=== PATIENT | female | born 1955 | race Caucasian/White ===

== ENCOUNTER 2020-07-13 07:57 | Outpatient (REF) | payer OTHER, SELFPAY ==
--- NOTE | ~2020-07-13 | MM_ITS ---
EXAMINATION: MM SCREENING DIGITAL BREAST TOMOSYNTHESIS, BILATERAL CLINICAL INFORMATION: Screening. Asymptomatic. Patient notes benign breast surgery 1993. The lifetime risk of breast cancer based on the Tyrer-Cuzick Model is 11%. COMPARISON: Mammography: 07/08/2019, 07/06/2018, 05/22/2017 TECHNIQUE: Digital breast tomosynthesis is performed in both the craniocaudal and mediolateral oblique views along with computer-aided detection (CAD). Synthesized 2D images are generated from the tomosynthesis. FINDINGS: There are scattered areas of fibroglandular density (ACR BI-RADS breast composition Category b). There are no significant masses, abnormal calcifications, or other abnormalities. Parenchymal pattern is similar to prior studies. No significant changes. MM/MM tomosynthesis screening BI IMPRESSION: No mammographic evidence of malignancy. ASSESSMENT: BI-RADS 1: Negative RECOMMENDATION: Routine annual mammography screening. This patient's information was entered into a reminder system with a target due date for their next mammogram.
== END 2020-07-13 07:58 | disposition home or self-care (01) ==
LOC: HO.MAMMO 07:57
PROVIDERS: Visit Provider Nurse Practitioner Family
DX: Z12.31 Encounter for screening mammogram for malignant neoplasm of breast (principal)
CPT/HCPCS: 77063; 77067

== ENCOUNTER 2020-08-02 08:07 | Outpatient (REF) | payer OTHER, SELFPAY ==
--- NOTE | ~2020-08-02 | MM_ITS ---
EXAMINATION: BONE DENSITOMETRY CLINICAL INDICATION: Screening for osteoporosis. COMPARISON: Previous BD dated 03/19/2016 and baseline BD dated 02/29/2008. TECHNIQUE: Using a [employer] DXA System (software version: 13.1) manufactured by [employer], dual-energy x-ray absorptiometry was performed of the lumbar spine and left hip. The images are of good technical quality. Summary results are attached. FINDINGS: AP SPINE L1-L4: There is levocurvature lumbar spine and mild degenerative changes which may cause overestimation of the lumbar bone mineral density. Current: BMD 0.963 g/cm2, Z-score -0.5, T-score -1.8, osteopenia, 4.7% decrease from previous, 12.5% decrease from baseline (<5% change is not significant). Prior: BMD 1.010 g/cm2. Baseline: BMD 1.100 g/cm2. LEFT FEMUR, NECK: Current: BMD 0.689 g/cm2, Z-score -1.2, T-score -2.5, osteoporosis. Prior: BMD 0.807 g/cm2. Baseline: BMD 0.898 g/cm2. LEFT FEMUR, TOTAL: Current: BMD 0.681 g/cm2, Z-score -1.6, T-score -2.6, osteoporosis, 16.4% decrease from previous, 23.4% decrease from baseline (<5% change is not significant). Prior: BMD 0.815 g/cm2. Baseline: BMD 0.889 g/cm2. IDENTIFIED RISK FACTORS: Recurrent falls, height loss, left oophorectomy. HISTORY OF FRACTURE: None listed. MEDICATIONS: Calcium supplements or multivitamin, vitamin D. MM/XR DEXA axial skeleton IMPRESSION: 1. DIAGNOSIS: Osteoporosis based on the lowest T-score value of -2.6 in the total femur applying World Health Organization criteria. 2. 10-YEAR FRACTURE RISK PREDICTION, FRAX: Major osteoporotic fracture (clinical spine, forearm, hip or shoulder) 13.0%. Hip fracture 2.7%. 3. Treatment Recommendations: NOF guidelines recommend consideration for treatment in postmenopausal women and men age 50 and older presenting with the following: -A hip or vertebral (clinical or morphometric) fracture. -T-score less than or equal to -2.5 at the femoral neck or spine after appropriate evaluation to exclude secondary causes. -Low bone mass at the hip or spine and a 10-year fracture probability by FRAX of greater than or equal to 3% for hip fracture or greater than or equal to 20% for major osteoporotic fracture based on the [place] adapted WHO algorithm. 4. Other Recommendations: All treatment decisions require clinical judgment and consideration of individual patient factors, including patient preferences, comorbidities, previous drug use, risk factors not captured in the FRAX model (e.g. frailty, falls, vitamin D deficiency, increased bone turnover, interval significant decline in bone density) and possible under or overestimation of fracture risk by FRAX. Additional medical evaluation for secondary cause of low bone mineral density may be appropriate. FUTURE SCAN RECOMMENDATION: People with diagnosed cases of osteoporosis or at high risk for fracture should have regular bone mineral density tests. For patients eligible for Medicare, routine testing is allowed once every 2 years. The testing frequency can be increased to one year for patients who have rapidly progressing disease, those who are receiving or discontinuing medical therapy to restore bone mass, or have additional risk factors.
== END 2020-08-02 08:08 | disposition home or self-care (01) ==
LOC: HO.MAMMO 08:07
PROVIDERS: Visit Provider Nurse Practitioner Family
DX: M81.8 Other osteoporosis without current pathological fracture (principal); R29.6 Repeated falls; Z79.899 Other long term (current) drug therapy; Z90.721 Acquired absence of ovaries, unilateral
CPT/HCPCS: 77080

== ENCOUNTER 2021-07-30 11:30 | Outpatient (REF) | payer MEDICARE, SELFPAY ==
--- NOTE | ~2021-07-30 | MM_ITS ---
EXAMINATION: MM SCREENING DIGITAL BREAST TOMOSYNTHESIS, BILATERAL CLINICAL INFORMATION: Screening. Asymptomatic. The lifetime risk of breast cancer based on the Tyrer-Cuzick Model is 10%. COMPARISON: Mammography: 07/13/2020, 07/08/2019, 07/06/2018 TECHNIQUE: Digital breast tomosynthesis is performed in both the craniocaudal and mediolateral oblique views along with computer-aided detection (CAD). Synthesized 2D images are generated from the tomosynthesis. FINDINGS: There are scattered areas of fibroglandular density (ACR BI-RADS breast composition Category b). There are no significant masses, abnormal calcifications, or other abnormalities. Parenchymal pattern is similar to prior studies. There is no developing density or architectural abnormality. The axilla and skin contours are unremarkable. No significant changes. MM/MM tomosynthesis screening BI IMPRESSION: No mammographic evidence of malignancy. ASSESSMENT: BI-RADS 1: Negative RECOMMENDATION: Routine annual mammography screening. This patient's information was entered into a reminder system with a target due date for their next mammogram.
== END 2021-07-30 11:31 | disposition home or self-care (01) ==
LOC: HO.MAMMO 11:30
PROVIDERS: PCP Nurse Practitioner Family; Visit Provider Nurse Practitioner Family
DX: Z12.31 Encounter for screening mammogram for malignant neoplasm of breast (principal)
CPT/HCPCS: 77063; 77067

== ENCOUNTER → 2021-08-15 14:50 | Outpatient (BNVA) | payer MEDICARE, SELFPAY | PROVIDERS: PCP Nurse Practitioner Family; Visit Provider Surgery | DX: K64.8 Other hemorrhoids (principal) | CPT/HCPCS: 46600; 99202 ==

== ENCOUNTER 2022-08-05 11:35 | Outpatient (REF) | payer MEDICARE, SELFPAY ==
--- NOTE | ~2022-08-05 | MM_ITS ---
EXAMINATION: MM SCREENING DIGITAL BREAST TOMOSYNTHESIS, BILATERAL CLINICAL INFORMATION: Screening. Asymptomatic. The lifetime risk of breast cancer based on the Tyrer-Cuzick Model is 9%. COMPARISON: Mammography: 07/30/2021, 07/13/2020, 07/08/2019, 07/06/2018 TECHNIQUE: Digital breast tomosynthesis is performed in both the craniocaudal and mediolateral oblique views along with computer-aided detection (CAD). Synthesized 2D images are generated from the tomosynthesis. FINDINGS: There are scattered areas of fibroglandular density (ACR BI-RADS breast composition Category b). There are no significant masses, abnormal calcifications, or other abnormalities. No architectural abnormality or developing density or significant change from prior studies. The axilla are unremarkable. MM/MM tomosynthesis screening BI IMPRESSION: No mammographic evidence of malignancy. ASSESSMENT: BI-RADS 1: Negative RECOMMENDATION: Routine annual mammography screening. This patient's information was entered into a reminder system with a target due date for their next mammogram.
== END 2022-08-05 11:36 | disposition home or self-care (01) ==
LOC: HO.MAMMO 11:35
PROVIDERS: PCP Family Medicine; Visit Provider Nurse Practitioner Family
DX: Z12.31 Encounter for screening mammogram for malignant neoplasm of breast (principal)
CPT/HCPCS: 77063; 77067

== ENCOUNTER 2023-01-03 09:50 | Day surgery (SDC) | payer MEDICARE, SELFPAY ==
[2023-01-03 10:18] VITALS: BP 146/99; PULSE 85; RESP 16; TEMP 36.2; O2SAT 100; BMI 27.1
[2023-01-03] MEDS: Lactated Ringers 1,000 ML 100 ML IVCONT (10:37)
--- NOTE | 2023-01-03 11:18 | HO.ANESPROP2 ---
HPI - Anesthesia Eval Consult details Narrative: screening [facility] Active Problems Active Problems: All Active Problems (Updated 01/02/23 @ 14:23 by Gricelda Berger, RN) Hemorrhoids with complication (Acute) Urinary tract infection (Acute) Knee pain, bilateral (Acute) Low back pain (Acute) Generalized anxiety disorder (Acute) Past Medical History Medical History (Updated 01/02/23 @ 14:23 by Gricelda Berger, CECELIA) Celiac sprue Depression Diverticulosis Generalized anxiety disorder GERD (gastroesophageal reflux disease) H/O infectious mononucleosis Hemorrhoids with complication Internal hemorrhoid Knee pain, bilateral Low back pain Myalgia Osteopenia Urinary tract infection Family History Family History Maternal Aunt Breast cancer Family history of problems with anesthesia: No Surgical History Surgical History (Updated 01/03/23 @ 10:14 by Ashlyn Guadarrama) H/O colonoscopy H/O esophagogastroduodenoscopy History of appendectomy History of left oophorectomy History of shoulder surgery History of tonsillectomy and adenoidectomy Hx of lumpectomy History of Problems with Anesthesia: No Social History Social History Patient Tobacco Use Status: Never used Tobacco Use of substances other than those prescribed or required for medical reasons: No Are you DNR?: No Advance Directives: No Advance Directives Information Provided: Yes Meds Allergies Allergy/AdvReac Type Severity Reaction Status Date / Time egg Allergy Intermediate Gastrointestinal Verified 01/03/23 10:05 Upset erythromycin base Allergy Intermediate Gastrointestinal Verified 01/03/23 10:05 Upset lactose Allergy Intermediate Gastrointestinal Verified 01/03/23 10:05 Upset Seasonal Allergies Allergy Intermediate Sneezing Verified 01/03/23 10:05 wheat Allergy Intermediate Gastrointestinal Verified 01/03/23 10:05 Upset Yeast Allergy Intermediate Gastrointestinal Verified 01/03/23 10:05 Upset Active Medications: Current Medications Lactated Ringer's (Lr) 1,000 mls @ 100 mls/hr IVCONT .Q10H GUERLINE Last Admin: 01/03/23 10:37 Dose: 100 mls/hr Home Medications Medication Instructions Recorded Confirmed Last Taken Type carisoprodol 250 mg tablet 250 mg PO BEDTIME 07/22/20 01/03/23 Unknown History cetirizine 10 mg tablet (Zyrtec) 10 mg PO DAILY PRN Allergy Symptoms 07/22/20 01/03/23 Unknown History esomeprazole magnesium 20 mg 20 mg PO DAILY 07/22/20 01/03/23 Unknown History capsule,delayed release (Nexium 24HR) iucmitt-ynitxhjlmuurw-xnotmvhu 250 1 tab PO Q4-6H PRN Headache 08/15/21 01/03/23 12/27/22 History mg-250 mg-65 mg tablet (Excedrin Migraine) duloxetine 30 mg capsule,delayed 30 mg PO DAILY 08/15/21 01/03/23 Unknown History release multivitamin 1 tab PO DAILY 08/15/21 01/03/23 Unknown History Culturelle 1 cap PO DAILY 01/03/23 01/03/23 Unknown History calcium 1 cap PO DAILY 01/03/23 01/03/23 Unknown History Exam Exam Date and Time: January 03, 2023 1118 Height,Weight and Vital Signs: Height 5 ft 3 in Weight 69.4 kg Last Vital Signs Temp 97.2 F 01/03/23 10:18 Pulse 85 01/03/23 10:18 Resp 16 01/03/23 10:18 BP 146/99 H 01/03/23 10:18 Pulse Ox 100 01/03/23 10:18 O2 Del Method Room Air 01/03/23 10:18 Airway Mallampati Class: II TM Dist: >3cm Neck ROM: Full Loose/Missing/Broken Teeth: No Heart: rr Lungs: cta Assessment and Plan Assessment Anesthesia Assessment: Anesthesia Plan Discussed Final Anesthetic Review Family History of Problems with Anesthesia: No History of Problems with Anesthesia: No NPO: Yes ASA Class: II Final Preanesthetic Review: No Changes in Pt Med Stat, Meds/Allgs Chart Reviewed, Consent Obtained/Reviewed and Anes Risks/Benef Reviewed Patient Risk: Low Procedure Risk: Low Anesthetic Plan Anesthetic Plan: MAC: Disposition: Standard PACU
--- NOTE | 2023-01-03 12:15 | MHC.SHP ---
Pre-Procedural Eval Section A Date of Service: 01/03/23 Section B Chief Complaint: Epigastric pain,Celiac disease,Change in bowel hab Details of Present Illness: see H*P Relevant Family History (Specify if Yes): No Relevant Social History: None Present Medications: see Short Stay Collaborative assessment Medical History: No relevant PMH History of Previous Operations: No relevant previous surgery Allergies: Allergies Allergy/AdvReac Type Severity Reaction Status Date / Time egg Allergy Intermediate Gastrointestinal Verified 01/03/23 10:05 Upset erythromycin base Allergy Intermediate Gastrointestinal Verified 01/03/23 10:05 Upset lactose Allergy Intermediate Gastrointestinal Verified 01/03/23 10:05 Upset Seasonal Allergies Allergy Intermediate Sneezing Verified 01/03/23 10:05 wheat Allergy Intermediate Gastrointestinal Verified 01/03/23 10:05 Upset Yeast Allergy Intermediate Gastrointestinal Verified 01/03/23 10:05 Upset Review of Systems Sugical H&P ROS: Negative: Constitution, Cardiovascular, Respiratory, Neurological, Psychiatric, Hem-Onc, Allergic/Immunologic, Gastrointestinal, Genitourinary, Musculoskeletal, Integumentary, Endocrine and Eyes/Ears/Nose/Throat Exam Surgical H&P Exam: Normal: HEENT, Normal: Heart, Normal: Lungs, Normal: Extremities, Normal: Abdomen, Normal: Skin and Normal: Neurological Plan Diagnosis/Plan: Unchanged I have reviewed the history and physical and performed a pertinent physical examination on my patient. No changes have occurred unless specified. Time Spent With Patient Time: Total time managing care of this patient today ____ minutes.
[2023-01-03 13:16] VITALS: BP 85/57; PULSE 73; RESP 16; TEMP 36.7; O2SAT 100
--- NOTE | 2023-01-03 13:20 | P.BOP_ITS ---
Brief Operative Note Date of Service: 01/03/23 Pre-op diagnosis: epigastric pian celiac disease\ change in bowels Post-op diagnosis: same Surgeon: Larry Alvarado Anesthesia: MAC Was an Dieing Out Machine Operator used for this Procedure?: No Estimated blood loss (mL): 2 Pathology: other Condition: stable Disposition: PACU
[2023-01-03 13:31] VITALS: BP 120/72; PULSE 66; RESP 20; TEMP 36.5; O2SAT 100
--- NOTE | 2023-01-03 13:40 | OP_ITS ---
DATE OF SERVICE: 01/03/2023 SURGEON: Larry Alvarado MD INDICATIONS: Abdominal pain, celiac disease, and change in bowels. PREOPERATIVE DIAGNOSIS: POSTOPERATIVE DIAGNOSIS: PROCEDURE PERFORMED: Upper endoscopy with biopsy, colonoscopy to the terminal ileum with biopsy. ESTIMATED BLOOD LOSS: COMPLICATIONS: ANESTHESIA: Monitored anesthesia care. ASSISTANTS: SPECIMENS: DESCRIPTION OF PROCEDURE: A history and physical was performed. The risks and benefits of the procedure were explained to the patient. Informed consent was obtained. The patient was placed in the left lateral decubitus position. The Olympus video gastroscope was introduced into the esophagus, stomach, and duodenum. Examination was performed. The scope was removed. She tolerated the procedure well and was repositioned for colonoscopy. A digital rectal exam was performed and was found to be normal. The Olympus pediatric video colonoscope was introduced into the rectum and advanced to the cecum. The cecum was identified by transillumination, palpation, and identification of ileocecal valve. Examination was performed. The scope was removed. She tolerated both procedures well and was returned to the recovery area in stable condition. FINDINGS: Upper endoscopy: 1. Esophagus: The esophagus was normal. There was an irregular EG junction with some minimal erythema and slight irritation just above the EG junction. Biopsies were obtained from this area. 2. Stomach: The stomach showed no evidence of masses, ulcers, or polyps. Antral biopsies were obtained. 3. Duodenum: The bulb and 2nd portion showed some minimal flattening of the mucosa. Biopsies were obtained from the 2nd portion. Colonoscopy: The terminal ileum was normal. The visualized colonic mucosa was within normal limits. There was no evidence of masses, ulcers, or polyps. The quality of the prep was good. There was mild sigmoid diverticulosis. Random sigmoid biopsies were obtained. Retroflexed examination showed very small internal hemorrhoids. IMPRESSION: 1. Minimal esophagitis. 2. Celiac disease. 3. Hiatal hernia. 4. Normal colonoscopy. RECOMMENDATION: Follow up the biopsy results. 10 year colon recall is recommended for average risk individuals. MD SANDHYA Lim/COBY / [phone] MTDD
== END 2023-01-03 14:00 | disposition home or self-care (01) ==
PROVIDERS: PCP Family Medicine; Visit Provider Internal Medicine Gastroenterology
PROC: (CPT 45380; principal; 2023-01-03 11:00)
DX: R19.4 Change in bowel habit (principal); K57.30 Diverticulosis of large intestine without perforation or abscess without bleeding; K64.8 Other hemorrhoids; K90.0 Celiac disease; R10.13 Epigastric pain; K21.9 Gastro-esophageal reflux disease without esophagitis; K31.89 Other diseases of stomach and duodenum; K20.80 Other esophagitis without bleeding; K44.9 Diaphragmatic hernia without obstruction or gangrene; M85.80 Other specified disorders of bone density and structure, unspecified site; M79.10 Myalgia, unspecified site; F32.A Depression, unspecified; Z79.899 Other long term (current) drug therapy
CPT/HCPCS: 45380; 43239; 88305; 88342; J2250

== ENCOUNTER 2023-07-04 11:06 | Outpatient (AMB) | payer MEDICARE, SELFPAY ==
--- NOTE | 2023-07-04 11:10 | AM.OFFWIN_ITS ---
Intake Vital Signs 07/04/23 11:11 Height 5 ft 3 in Weight 160 lb BMI 28.3 BP 114/60 Blood Pressure Location Rt brachial Position Sitting Pulse 78 Pulse Source Pulse Oximeter Temp 98.7 F Temp Source Oral Pulse Oximetry (%) 97 Oxygen Delivery Method Room Air Intake Visit Reasons: EST/blood in right ear(lobby masked) Intake Note: Pt is here c/o discomfort in her right ear. Pt states she swabbed blood out of her right ear. Patient Tobacco Use Status: Never used Tobacco Allergies egg Allergy (Intermediate, Verified 07/04/23 11:11) Gastrointestinal Upset erythromycin base Allergy (Intermediate, Verified 07/04/23 11:11) Gastrointestinal Upset lactose Allergy (Intermediate, Verified 07/04/23 11:11) Gastrointestinal Upset Seasonal Allergies Allergy (Intermediate, Verified 07/04/23 11:11) Sneezing wheat Allergy (Intermediate, Verified 07/04/23 11:11) Gastrointestinal Upset Yeast Allergy (Intermediate, Verified 07/04/23 11:11) Gastrointestinal Upset Do you need a note to return to daycare/school/sports/work: No HPI HPI Comments History of Present Illness Details This is a 67-year-old female who presented to the walk-in clinic today complaining of right ear discomfort and bleeding. Patient states she had COVID- 19 05/2023 and she has been suffering from persistent sinus/nasal congestion, headaches, and fatigue since then. Patient states that her right ear started bothering her several days ago and she had some blocked/muffled hearing. She noticed some blood on her hearing aid when she removed her hearing aid yesterday. She denies any recent head trauma. She denies any vomiting. Of note, the patient plays the [employer]. [facility] Medical History (Updated 01/02/23 @ 14:23 by Gricelda Berger RN) Myalgia Osteopenia H/O infectious mononucleosis Depression GERD (gastroesophageal reflux disease) Internal hemorrhoid Diverticulosis Celiac sprue Hemorrhoids with complication Urinary tract infection Knee pain, bilateral Low back pain Generalized anxiety disorder Surgical History (Updated 01/03/23 @ 10:14 by Ashlyn Guadarrama) H/O colonoscopy History of left oophorectomy Hx of lumpectomy H/O esophagogastroduodenoscopy History of shoulder surgery History of appendectomy History of tonsillectomy and adenoidectomy Family History Maternal Aunt Breast cancer Social History Patient Tobacco Use Status: Never used Tobacco Review of Systems Const All systems reviewed & are unremarkable except as noted in HPI and below Reports no additional complaints Eyes Reports no additional complaints ENT Reports no additional complaints Card Reports no additional complaints Resp Reports no additional complaints GI Reports no additional complaints Reports no additional complaints Musc Reports no additional complaints Skin/Breast Reports system reviewed and no additional complaints, except as documented Neuro Reports no additional complaints Psych Reports no additional complaints Endo Reports no additional complaints Logan/Lymph Reports no additional complaints Aller/Immun Reports no additional complaints Physical Exam Vital Signs: Last Vital Signs Temp 98.7 F 07/04/23 11:11 Pulse 78 07/04/23 11:11 BP 114/60 07/04/23 11:11 Pulse Ox 97 07/04/23 11:11 Oxygen Delivery Method Room Air 07/04/23 11:11 BMI result Body Mass Index 28.3 Const Other: Vital signs reviewed. Constitutional: Non-toxic appearing. No acute distress. Well-developed and well-nourished. HEENT: Normocephalic and atraumatic. No rodriguez sign. No raccoon eyes. There is blood in her right external auditory canal occluding her tympanic membrane so I am unable to visualize her tympanic membrane. Skin: Warm and dry. No rashes or lesions noted. Neck: Full and painless range of motion. No cervical lymphadenopathy. Cardio: Regular rate. No lower extremity edema. No JVD. Pulmonary: No respiratory distress. No accessory muscle usage. Gastrointestinal: Soft, nontender, and nondistended in all 4 quadrants. Musculoskeletal: Normal range of motion in joints throughout the body. No deformity or other signs of injury. Neuro: Alert and oriented x4. Cranial nerves 2-12 grossly intact. No focal deficits appreciated. Psych: Normal mood and affect. Assessment & Plan Assessment & Plan (1) Blood in right ear canal: Code(s): H92.21 - Otorrhagia, right ear Plan: This is a 67-year-old female who presented to the walk-in clinic complaining of blood in her right ear. 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 On physical examination, there is blood in her right ear canal occluding her tympanic membranes were I am unable to visualize her tympanic membrane. Differential diagnoses includes perforation of her tympanic membrane versus acute otitis media. Patient was sent home with p.o. amoxicillin/clavulanate 875/125 mg twice daily to treat presumed acute otitis media and perforated tympanic membrane. The patient was instructed to call her ENT doctor to schedule a follow-up appointment. She was instructed to refrain from playing the trumpet for the next 1 week until her symptoms improve. She was instructed to follow-up here or proceed directly to the emergency room if she were to develop any persistent/worsening symptoms. Patient verbalized understanding and is agreeable with the plan. Medications: New amoxicillin-pot clavulanate 875-125 mg 1 tab PO BID 14 tabs 0RF Coding Level of Care Code Est Pt Level 3 (63272) Diagnoses Blood in right ear canal H92.21
[2023-07-04 11:11] VITALS: BP 114/60; PULSE 78; TEMP 37.1; O2SAT 97; BMI 28.3
== END 2023-07-04 11:52 | disposition home or self-care (01) ==
PROVIDERS: PCP Family Medicine; Visit Provider Physician Assistant Medical
DX: H92.21 Otorrhagia, right ear (principal)
CPT/HCPCS: 99213

== ENCOUNTER 2023-08-15 08:37 | Outpatient (REF) | payer MEDICARE, SELFPAY | END 2023-08-15 08:38 | disposition home or self-care (01) | LOC: HO.MAMMO 08:37 | PROVIDERS: PCP Family Medicine; Visit Provider Family Medicine | DX: Z12.31 Encounter for screening mammogram for malignant neoplasm of breast (principal) | CPT/HCPCS: 77063; 77067 ==

== ENCOUNTER → 2023-08-15 08:45 | Outpatient (BNV) | payer MEDICARE, SELFPAY | PROVIDERS: PCP Family Medicine; Visit Provider Radiology Diagnostic Radiology | DX: Z12.31 Encounter for screening mammogram for malignant neoplasm of breast (principal) | CPT/HCPCS: 77063; 77067 ==

== ENCOUNTER 2024-08-20 09:50 | Outpatient (REF) | payer MEDICARE, SELFPAY ==
--- OUTSIDE RECORDS SUMMARY | 2024-08-20 11:28 | XMS_ITS | Patient Health Record ---
Author Organization [facility] Address [address] [place] [address] Care Team Providers Care Postdoctoral Scholar Name Role Phone Batool Canseco N.P. Primary Care Provider Larry Michelle Jr Unavailable Allergies Allergen (clinical drug ingredient) Drug/Non Drug Allergy documented on EMR Reaction Allergy Type Onset Date Status dairy (uncoded) Unknown Allergy Acti ve eggs (uncoded) Unknown Allergy Activ e Wheat wheat (uncoded) Unknown Allergy Acti ve erythromycin ERYTHROMYCIN (uncoded) Unknown Allergy Active seasonal allergies (uncoded) Unknown Allergy Active yeast (uncoded) Unknown Allergy Acti ve Reason For Referral No Information Medications Medication SIG (Take, Route, Frequency, Duration) Notes Start Date End Date Status Magnesium Active Digestive Enzyme Act rodney MiraLax (colon prep) 17 GM/SCOOP mixed with Gatorade or Crystal Light Orally begin at 5:00 p.m. the day before the procedure for 1 day 11/21/2022 Active ZyrTEC Allergy Activ e Probiotic Active Carisoprodol 250 MG 1 tablet as needed O rally Four times a day Active Fish Oil Active DULoxetine HCl 30 MG 1 capsule Orally On ce a day for 30 day(s) 11/21/2022 Active Advil 200 MG 1 tablet as needed O rally every 6 hrs Active Omeprazole 20 MG 1 capsule Orally Onc e a day for 30 days Active Immunizations Vaccine Route Administration Date Status Comme nts Influenza Unknown 03/19/2022 Administered Problems Problem Type SNOMED Code ICD Code Onset Dates Problem Status W/U Status Risk Notes Problem 749012548 Colon cancer screening (Z12.11) Active confirmed Problem 31140497 Epigastric pain (R10.13) Active confirmed Problem 33515273 Change in bowel habit (R19.4) Active confirmed Problem 976224827 Celiac disease (K90.0) Active confirmed Problem 403883971 Gastroesophageal reflux disease without esophagitis (K21.9) Active confirmed Problem 40240886 Lower abdominal pain (R10.30) Active confirmed Vital Signs Blood pressure diastolic 00 mm Hg 02/26/2024 Height 65 in 02/26/2024 Blood pressure systolic 00 mm Hg 02/26/2024 Weight 161 lbs 02/26/2024 BMI 26.79 kg/m2 02/26/2024 Encounters Encounter Location Date Provider Diagnosis [facility] [address] [place] [address] 02/26/2024 Larry Alvarado Jr Gastroesophageal reflux disease without esophagitis K21.9 ; Celiac disease K90.0 and Colon cancer screening Z12.11 Assessments Encounter Date Diagnosis (ICD Code) Assessment Notes Treatment Notes Treatment Clinical Notes Section Notes 02/26/2024 Celiac disease (ICD-10 - K90.0) At this time, harpal givens is doing well. We discussed gastroesophageal reflux disease today. We discussed diet, lifestyle modifications, and weight management. We recommended she continue omeprazole. She will continue to follow a gluten-free diet. She is up-to-date on colon cancer screening. Followup in one year. 02/26/2024 Gastroesophageal reflux disease without esophagitis (ICD-10 - K21.9) Gastroesophageal reflux disease material was printed At this time, she is doing well. We discussed gastroesophageal reflux disease today. We discussed diet, lifestyle modifications, and weight management. We recommended she continue omeprazole. She will continue to follow a gluten-free diet. She is up-to-date on colon cancer screening. Followup in one year. 02/26/2024 Colon cancer screening (ICD-10 - Z12.11) At this time, kaden santoro is doing well. We discussed gastroesophageal reflux disease today. We discussed diet, lifestyle modifications, and weight management. We recommended she continue omeprazole. She will continue to follow a gluten-free diet. She is up-to-date on colon cancer screening. Followup in one year. Plan Of Treatment Future Test Test Name Order Date COLONOSCOPY 02/03/2013 COLONOSCOPY 09/08/2014 UPPER GI ENDOSCOPY 11/21/2022 COLONOSCOPY 11/21/2022 Next Appt Details Provider Name:Larry Urias Virgilio patrick Jr, 02/24/2025 01:55:00 PM, [address], [address], [place], [address], Insurance Providers Payer Name Payer Address Payer Phone Subscriber Number Group Number Insured Name Patient Relationship to Insured Coverage Start Date Coverage End Date MEDICARE OF [place] [address] [place] [address] [id number] COLIN PERRY Self - patient is the insured MEDEX ATT[employer] CLAIMS [address] [place] [phone] [id number] COLIN PERRY Self - patient is the insured Medical (General) History Medical History History ICD Code Celiac sprue, diagnosed by e ndoscopy and serology 2007, EGD 01/22, no active celiac disease Colonoscopy 01/22, diverticul osis/small internal hemorrhoids. Five-year followup Gastroesophageal reflux disease, mild re flux changes on endoscopy 01/22 Depression Mononucleosis Osteopenia Myalgia spinal fusion december Surgical History Surgery Date(Month/Year) left ovary, tube, appendix remoal tonsillectomy Lumpectomy, benign disease left shoulder surgery 2019 torn rotator cuff spinal fusion 01/2024 Hospitalization History Reason Date(Month/Year)
--- OUTSIDE RECORDS SUMMARY | 2024-08-20 11:28 | XMS_ITS | Data Portability ---
Author Organization [place] [facility], [facility] Address [address] [address] Care Team Providers Care Stem Roller Name Role Phone IVET CHELI Primary Care Provider Assessment Encounter Date Assessment Date Assessment LastModified by Organization Details LastModified Time 03/03/2024 03/03/2024 Patient presents for evaluation of ears. Cerumen successfully removed bilaterally, which patient tolerated well. Otologic exam otherwise unremarkable. Patient reported hearing returned to baseline thereafter and declined audiometric testing. Return in 3-6 months for cerumen removal. Avoid Q-tips. Avoid or protect against loud noise. Recommend annual audiometric testing, sooner with perceived change. Patient understands to call sooner with any issues that arise. [email or web address] Not available 03/03/2024 12:03:44 Plan of Treatment Reminders Order Date Submit Date Provider Last Modified By Organization Details Last Modified Time Details Appointments Establish ed 15 2024 10:30A M DAI ARANA PA-C Not available Not available Not available Lab None recorded. Referral None recorded. Procedures None recorded. Surgeries None recorded. Imaging None recorded. Medication Orders None recorded. Patient TargetsNo targets recorded. Patient InstructionsNo instructions recorded. Reason for Referral None Reported. Problems Name Problem SNOMED Code Status Onset Date Resolution Date Notes Provider Name and Address Organization Details Recorded Time Bilateral tinnitus 01556044974 02 Active 2021 Tinnitus, bilateral ; Note: Date Diagnosed : 06/20/2021 9:32 AM (H93.13) Not Available [facility] 03:13:29 Sensorine ural hearing loss of bilateral ears 596932558 Active 2021 Sensorine ural hearing loss, bilateral ; Note: Date Diagnosed : 06/20/2021 9:32 AM (H90.3) Not Available [facility] 03:13:29 Impacted cerumen of bilateral ears 71862093599 46710 Active 2015 Impacted cerumen, bilateral ; Note: Date Diagnosed : 6 3:21 PM (H61.23) Not Available [facility] 03:13:30 Impacted cerumen in left ear 82561553385 21434 Active 2023 Impacted cerumen, left ear; Note: Date Diagnosed : 07/07/2023 11:47 AM (H61.22) Not Available [facility] 03:13:28 Conductiv e hearing loss 40463770 Active 2023 Conductiv e hearing loss, unspecifi ed; Note: Date Diagnosed : 07/07/2023 11:47 AM (H90.2) Not Available [facility] 03:13:29 Otorrhagi a of right ear 60156145119 86390 Active 2023 Otorrhagi a, right ear; Note: Date Diagnosed : 07/07/2023 11:46 AM (H92.21) Not Available [facility] 03:13:29 Problem Notes None recorded. Procedures Surgical History Date Name Laterality Status Provider Name and Address Organization Details Recorded Time Cerumen removal without microscope bilat completed DAI ARANA PA-C [address] [place] [address], [phone], [facility] 03/03/2024 12:03:29 lumbar spinal fusion completed DAI ARANA PA-C [address] [place] [address], [phone], [facility] - [facility] 03/03/2024 11:55:15 Imaging Results None recorded. Procedure Notes None recorded. Medical Equipment None Reported. Medications Name Sig Start Date Stop Date Status Note LastModified by Organization Details LastModified Time carisoprodo l 350 mg tablet 2015 active Medication ID: [id number] Dur ation Value: 14 Brand Name: carisoprod ol Send Method: E-Prescrib ed Subs Allowed: subs OK Medicat ionGeneric Name: carisoprod ol Not Available Not Available Not Available tizanidine 2 mg tablet TAKE 1 TABLET BY MOUTH EVERY 8 HOURS. active Not Available Not Available No t Available azithromyci n 250 mg tablet active Not Available Not Available Not Available Nexium 20 mg capsule,del ayed release 2015 active Medication ID: [id number] Bra nd Name: Nexium Sen d Method: E-Prescrib ed Subs Allowed: subs OK Medicat ionGeneric Name: Nexium Not Available Not Available Not Available ofloxacin 0.3 % ear drops Apply 10 drop into right ear once a day active Not Available Not Available No t Available citalopram 20 mg tablet 2015 active Medication ID: [id number] Dur ation Value: 30 Brand Name: citalopram Send Method: E-Prescrib ed Subs Allowed: subs OK Medicat ionGeneric Name: citalopram Not Available Not Available Not Available gabapentin 300 mg capsule active Not Available Not Available Not Available gabapentin 100 mg capsule active Not Available Not Available Not Available celecoxib 100 mg capsule 2015 active Medication ID: [id number] Dur ation Value: 30 Brand Name: celecoxib Send Method: E-Prescrib ed Subs Allowed: subs OK Medicat ionGeneric Name: celecoxib Not Available Not Available Not Available amoxicillin 875 mg-potassiu m clavulanate 125 mg tablet active Not Available Not Available Not Available duloxetine 30 mg capsule,del ayed release active Not Available Not Available Not Available oxycodone 10 mg tablet TAKE 1 TABLET BY MOUTH EVERY 6 HOURS NEEDED FOR PAIN active Not Available Not Available No t Available Vitals Date Recorded Body height Body mass index (BMI) Body weight Provider Name and Address Organization Details Last Updated DateTime 03/03/2024 160.02 cm 27.5 kg/m2 41460.82 g So Del Toro [place] [facility] 03/03/2024 11:45:22 Social History None recorded. Functional Status None recorded. Mental Status None recorded. Family History Nothing Reported. Medical History No medical history recorded. Gynecological HistoryNo gynecological history recorded. Obstetrics History GPAL:G 0 P 0 0 0 0 Past Encounters Encounter ID Performer Location Encounter Start Date Encounter Closed Date Diagnosis/Indication Diagnosis SNOMED-CT Code Diagnosis ICD10 Code Diagnosis Note [id number] CINTIA BURR MD [facility] [address] [place] [address] 03/03/2024 11:32:26 03/03/2024 11:57:41 Impacted cerumen of bilateral ears 4629303896 025467 H61.23 Health Concerns Section Related Observation LastModified by Organization Detai ls LastModified Time None Recorded Concern Status LastModified by Organization Details LastModified Time None Recorded Advance Directives Directive None Recorded Payers Encounter Date Sequence Insurance Name Policy Number Policy Courtney Covered Member ID Courtney Member ID Guarantor Name 03/03/2024 2 [place] [id number] Juany Parker Bolivar [id number] Juany Keith Bolivar 03/03/2024 1 [place] [employer] Juany Keith Bolivar [id number] Juany Lutz Notes Date Note Type Note Provider Name and Address Organization Details Recorded Time 03/03/2024 text/html 68 year old female presents for evaluation of the ears. Reports she had lumbar spinal fusion 01/01 and is healing well and feeling much better. Ears have not been bothersome. Denies otalgia, otorrhea, pruritus, and change in hearing. CINTIA AGUAYO MD [address] [place] [address], [place], [address], [facility] - [facility] 03/03/2024 12:53:37 OBGyn Episode No OBEpisode recorded.
--- OUTSIDE RECORDS SUMMARY | 2024-08-20 11:28 | XMS_ITS ---
Author Organization [facility] Address [address] [place] [address] Care Team Providers Care Medical Observer Name Role Phone Batool Canseco N.P. Primary [...] Active yeast (uncoded) Unknown Allergy Acti ve REASON FOR VISIT Patient presents today for Celiac disease Medications Medication SIG (Take, Route, Frequency, Duration) Notes Start Date End Date Status ZyrTEC Allergy Activ e Probiotic Active Carisoprodol 250 MG 1 tablet as needed O rally Four times a day Active Advil 200 MG 1 tablet as needed O rally every 6 hrs Active Omeprazole 20 MG 1 capsule Orally Onc e a day for 30 days Active Magnesium Active Digestive Enzyme Act rodney MiraLax (colon prep) 17 GM/SCOOP mixed with Gatorade or Crystal Light Orally begin at 5:00 p.m. the day before the procedure for 1 day 11/21/2022 Active Fish Oil Active DULoxetine HCl 30 MG 1 capsule Orally On ce a day for 30 day(s) 11/21/2022 Active Problems Problem Type SNOMED Code ICD Code Onset Dates Problem Status W/U Status Risk Notes Problem 165431363 Gastroesophageal reflux disease without esophagitis (K21.9) Active confirmed Problem 995525194 Colon cancer screening (Z12.11) Active confirmed Vital Signs Blood pressure systolic 00 mm Hg 02/26/20 24 Blood pressure diastolic 00 mm Hg 024 Height 65 in 02/26/2024 Weight 161 lbs 02/26/2024 BMI 26.79 kg/m2 02/26/2024 Encounters Encounter Location Date Provider Diagnosis [facility] [address] [place] [address] 02/26/2024 Larry Alvaraod Jr Gastroesophageal reflux disease without esophagitis K21.9 ; Celiac disease K90.0 and Colon cancer screening Z12.11 Assessments Encounter Date Diagnosis (ICD Code) Assessment Notes Treatment Notes Treatment Clinical Notes Section Notes 02/26/2024 Gastroesophageal reflux disease without esophagitis (ICD-10 - K21.9) Gastroesophageal reflux disease material was printed At this time, she is doing well. We discussed gastroesophageal reflux disease today. We discussed diet, lifestyle modifications, and weight management. We recommended she continue omeprazole. She will continue to follow a gluten-free diet. She is up-to-date on colon cancer screening. Followup in one year. 02/26/2024 Celiac disease (ICD-10 - K90.0) At this time, s he is doing well. We discussed gastroesophageal reflux [...] Followup in one year. Plan Of Treatment Treatment Notes Assessment Notes Gastroesophageal reflux dise ase without esophagitis Gastroesophageal reflux disease material was printed Next Appt Details Follow Up: 1 Year, Reason: Provider Name:Larry patrick Jr, 02/24/2025 01:55:00 PM, [address], [address], [place], [address], Progress Notes * JUANY PERRY ADOB: (68 yo F)Acc No.[id number]:02/26/2024 Progress Notes Patient:JUANY MONK Provider:?Larry Alvarado MD :1955???Age:68 Y???Sex:Female D ate:02/26/2024 Address:[address] [place], [place] [address] Pcp:Batool Canseco N.P. Subjective: * Chief Complaints: * ???1. Patient presents today for Celiac disease. * HPI: ???New symptom(s):? Juany is a pleasant 68-year-old woman seen today in followup of multiple GI issues. She has celiac disease and has been maintained on a gluten-free diet. Endoscopy in December showed no evidence of celiac disease on biopsy consistent with a response to diet. There was no H. pylori and mild reflux changes but no Mariscal's esophagus. We reviewed this today. She continues on omeprazole with good control of reflux symptoms. ?Colonoscopy in December showed diverticulosis and small internal hemorrhoids but no polyps. She does have a family history of colon polyps in her father so consideration could be given to repeat colonoscopy in 5 years. We reviewed this today. * Medical History:?Celiac spru e, diagnosed by endoscopy and serology 2007, EGD 01/22, no active celiac disease, Colonoscopy 01/22, diverticulosis/small internal hemorrhoids. Five-year followup, Gastroesophageal reflux disease, mild reflux changes on endoscopy 01/22, Depression, Mononucleosis, Osteopenia, Myalgia, Spinal fusion december. * Surgical History:?left ovary , tube, appendix remoal , tonsillectomy , Lumpectomy, benign disease left , shoulder surgery 2019 torn rotator cuff , spinal fusion 01/2024. * Family History:?Father: dece ased, colon polyp, diagnosed with Heart disease, Colon polyps.?Mother: alive 101 yrs.?Paternal Grand Mother: , colon cancer, diagnosed with Colon cancer.? * Social History:?Tobacco Use:?Tobacco Use/Smoking?Are you a: nonsmoker.?Drugs/Alcohol:?Alcohol Screen?Points: 1, Interpretation: Negative.?Miscellaneous:?Marital status: . 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 * Medications:?Taking Digestiv e Enzyme , Taking Magnesium , Taking Fish Oil , Taking Carisoprodol 250 MG Tablet 1 tablet as needed Orally Four times a day, Taking Probiotic , Taking ZyrTEC Allergy , Taking Omeprazole 20 MG Tablet Delayed Release 1 capsule Orally Once a day, Taking Advil 200 MG Tablet 1 tablet as needed Orally every 6 hrs, Taking DULoxetine HCl 30 MG Capsule Delayed Release Particles 1 capsule Orally Once a day, Taking MiraLax (colon prep) 17 GM/SCOOP Powder mixed with Gatorade or Crystal Light Orally begin at 5:00 p.m. the day before the procedure, Medication List reviewed and reconciled with the patient * Allergies:?ERYTHROMYCIN, whe at, eggs, dairy, yeast, seasonal allergies. Objective: * Vitals:?Wt: 161 lbs, Ht: 65 in, BMI:26.79 Index, BP: 00/00 mm Hg. * Examination: ???General Examination: ???On examination today she appears well. Skin is anicteric. Lungs are clear. Heart shows regular rate and rhythm. Abdomen is soft without focal masses or tenderness. Extremities are without edema. Assessment: * Assessment: 1.?Gastroesophageal reflux d isease without esophagitis - K21.9 (Primary)?2.?Celiac disease - K90.0?3.?Colon cancer screening - Z12.11? At this time, she is doing w ell. We discussed gastroesophageal reflux disease today. We discussed diet, lifestyle modifications, and weight management. We recommended she continue omeprazole. She will continue to follow a gluten-free diet. She is up-to-date on colon cancer screening. Followup in one year. Plan: * Treatment: * Procedure Codes:?3017F COLOR ECTAL CA SCREEN DOC REV, G9903 Pt scrn tbco id as non user, G9745 DOC RSN FOR NOT SCREEN/REC F/U HBP * Preventive Medicine:? ??Counseling:?Care goal follow-up plan:?Above Normal BMI Follow-up?Giving encouragement to exercise,?BMI management provided?Yes.? ??Urinary Incontinence:?Urinary Incontinence?Assessment:?Present mild,?Plan of care documented:?Yes,?Type of plan of care:?Lifestyle interventions.? ??Screenings:?Fall Risk Screening?Fall Risk Assessment:?No falls in the past year,?Assessment:?Not performed, no reason specified.? * Follow Up:?1 Year * * Sign off status: Completed true * Provider:?Larry Alvarado MD Date:?0 02/26/2024 Generated for Amber beasley/Priscila/eTransmitting on:?08/20/2024 11:27 AM EDT History and Physical Notes * HPI (History of Present Illness) Category Sub-Category Detail Notes Category Not es New symptom(s) Juany is a pleasant 68-year-old woman seen today in followup of multiple GI issues. She has celiac disease and has been maintained on a gluten-free diet. Endoscopy in December showed no evidence of celiac disease on biopsy consistent with a response to diet. There was no H. pylori and mild reflux changes but no Mariscal's esophagus. We reviewed this today. She continues on omeprazole with good control of reflux symptoms. Colonoscopy in December showed diverticulosis and small internal hemorrhoids but no polyps. She does have a family history of colon polyps in her father so consideration could be given to repeat colonoscopy in 5 years. We reviewed this today. Examination Category Sub-Category Detail Notes Category Not es General Examination On exami nation today she appears well. Skin is anicteric. Lungs are clear. Heart shows regular rate and rhythm. Abdomen is soft without focal masses or tenderness. Extremities are without edema.
--- OUTSIDE RECORDS SUMMARY | 2024-08-20 11:28 | XMS_ITS | Patient Health Record ---
Author Organization [facility] Address [address] [place] [address] Care Team Providers Care Welding Foreman Name Role Phone CHELI COONEY N.P. Primary Care Provider Maria Elena Cunningham Unavailable [phone] Reason For Referral No Information Medications Medication SIG (Take, Route, Fr equency, Duration) Notes Start Date End Date Status ZyrTEC Allergy 10MG 1 ORAL daily for -3 Merrill-MJ 2013 Active PriLOSEC ORAL for -3 Merrill-MJ 01/04/2012 Active Calcium Magnesium ORAL for -3 Merrill-MJ 01/04/2012 Active Align - Orally Active Multi-Vitamin Daily - 1 tablet Orally Once a day Active NexIUM Active Soma Active Social History Tobacco Use: Social History Observation Description Date Details (start date - stop date) Never Smoker NA - NA Tobacco Use/Smoking Question Answer Notes Are you a nonsmoker Alcohol Screen (Audit-C) Question Answer Notes Did you have a drink contain ing alcohol in the past year? Yes How often did you have a dri nk containing alcohol in the past year? Monthly or less (1 point) How many drinks did you have on a typical day when you were drinking in the past year? 1 or 2 drinks (0 point) Points 1 Interpretation Negative Sexual History Question Answer Notes Had sex in the past 12 months (vaginal, oral, or anal)? Yes with Men only Prevention strategies discussed: Other Problems Problem Type SNOMED Code ICD Code Onset Dates Problem Status W/U Status Risk Notes Problem Postmenopausal atrophic vaginitis (37456356) Postmenopausal atrophic vaginitis (N95.2) Active confirmed Problem Cystocele (240616704) Cystocele, unspecified (N81.10) Active confirmed Problem Postmenopausal bleeding (19637942) Postmenopausal bleeding (627.1) Active confirmed Diag Problem Menopausal symptom (90668185) Symptomatic menopausal or female climacteric states (627.2) Active confirmed Major Problem Muscle pain (47308436) Unspecified myalgia and myositis (729.1) Active confirmed Major Problem Gynecological examination normal (743793401640819) Routine gynecological examination (V72.31) Active confirmed Major Problem Surveillance of intrauterine device contraception done (979236369489528) Surveillance of previously prescribed intrauterine contraceptive device (V25.42) Active confirmed Major Problem Screening for malignant neoplasm of colon (064735365) Special screening for malignant neoplasms, colon (V76.51) Active confirmed Major Plan Of Treatment Pending Test Test Name Order Date Urinalysis 07/10/2017 Insurance Providers Payer Name Payer Address Payer Phone Subscriber Number Group Number Insured Name Patient Relationship to Insured Coverage Start Date Coverage End Date [facility] [address] [place] [address] [phone] [id number] COLIN PERRY Self - patient is the insured Medical (General) History Medical History History ICD Code Postmenopausal bleeding N95.0 Menopausal and female climacteric states N95.1 Fibromyalgia M79.7 Surgical History Surgery Date(Month/Year) Appendectomy Colonoscopy Left Foot Fracture x 5 Left Salpingoopherectomy Tonsillectomy/Adenoidectomy Hospitalization History Reason Date(Month/Year) 2 Vaginal Deliveries See Surgical Hx
--- OUTSIDE RECORDS SUMMARY | 2024-08-20 11:28 | XMS_ITS ---
Author Name [facility] Organization Unknown History of Medication Use Medication Directions Dispensed Refills Start Date End Date Stat triamcinolone acetonide 40 mg/mL suspension for injection Take 40 mg by injection route. 07/14/2024 active lidocaine (PF) 100 mg/5 mL (2 %) injection syringe Take 4 mL by injection route. 07/14/2024 active Problems Problem Status Onset Date Problem Type Date of Resoluti on Source Nontraumatic rotator cuff tear active 2024-07-14 ProblemAct ENS_AONECT Encounters Encounter Type Encounter Reason Primary Diagnosis Location Date Ambulatory [facility] 08/01/2024 Ambulatory [facility] 07/20/2024 Ambulatory [facility] 07/15/2024 Ambulatory [facility] 07/14/2024 [facility] 07/14/2024 [facility]ulatory [facility] 07/14/2024 Ambulatory [facility] 07/14/2024 [facility]ulatory [facility] 07/12/2024 [facility] 07/12/2024
--- OUTSIDE RECORDS SUMMARY | 2024-08-20 11:28 | XMS_ITS | Patient Health Record ---
[facility] Cedric yevgeniy [place] Address [address] [place] [address] Care Team Providers Care Athletics Director Name Role Phone Ajith DUEÑAS, Batool Primary Care Provider Unavail able Black, Stephanie Unavailable [phone] Allergies Allergen (clinical drug ingredient) Drug/Non Drug Allergy documented on EMR Reaction Allergy Type Onset Date Status wheat Celiac disease Drug Allergy Ac tive [place] Celiac disease Allergy Activ e Eggs or Egg-derived Products Celiac disease Drug Allergy Active Lactose (Allergy) Celiac disease Allergy Active Reason For Referral No Information Medications Medication SIG (Take, Route, Frequency, Duration) Notes Start Date End Date Status ZyrTEC Allergy 10 MG 2 capsules Orally O nce a day for 30 day(s) OTC Active Citalopram Hydrobromide 30 1 tablet Oral ly Three times a day Not-Taking Night Splint AFO - L1930 as directed 12/13/2013 Not-Taking Carisoprodol 350 MG 1 tablet as needed Orally Four times a day Active NexIUM 24HR 20 MG 1 capsule Orally Onc e a day for 30 day(s) OTC Active PriLOSEC Not-Taking vitamin OTC Not-Taking Lexapro Not-Taking Eakly 3 1200 MG 1 capsule Orally Onc e a day for 30 day(s) Not-Taking Naprosyn Not-Taking [place]-Gel - as directed Externally OTC Not-Taking Align 4 MG as directed Orally OTC Not-Taking Gabapentin 100 MG Orally No t-Taking DULoxetine HCl 60 MG 1 capsule Orally On ce a day for 30 day(s) Active Physical Therapy 3-4x per week for 3- 4 weeks Not-Taking Motrin Not-Taking D3 Vitamin Not-Takin g Nortriptyline HCl No t-Taking B-12 3000 MCG as directed Sublingual Not-Taking Work Note . . . Pt needs to park closer to the door due to Right Foot issue/ limit walking for . 11/15/2013 Not-Taking Immunizations Vaccine Route Administration Date Status Comme nts COVID-19 Moderna Vaccine Unknown 08/28/2020 Administered Second Dose: 09/25/2020 Social History Tobacco Use: Social History Observation Description Date Details (start date - stop date) Never Smoker NA - NA Tobacco Use/Smoking Question Answer Notes Are you a: nonsmoker Additional Findings: Tobacco Non-User Current no n-smoker Alcohol Screen Question Answer Notes Did you have a drink containing alcohol in the p ast year? No Points 0 Interpretation Negative Tobacco use other than smoking: Question Answer Notes Are you an other tobacco user? No Problems Problem Type SNOMED Code ICD Code Onset Dates Problem Status W/U Status Risk Notes Problem Acquired hammer toe of right foot (6984576136133009) Other hammer toe(s) (acquired), right foot (M20.41) Active confirmed Problem Acquired hammer toe of left foot (8082284294574153) Other hammer toe(s) (acquired), left foot (M20.42) Active confirmed Problem Plantar wart (68672063) Plantar wart (B07.0) Active confirmed Problem Localized, primary osteoarthritis of the ankle and/or foot (271592809) Primary osteoarthritis, right ankle and foot (M19.071) Active confirmed Problem Localized, primary osteoarthritis of the ankle and/or foot (175259152) Primary osteoarthritis, left ankle and foot (M19.072) Active confirmed Problem Acquired hammer toe of right foot (8597083896983921) Other hammer toe(s) (acquired), right foot (M20.41) Active confirmed Problem Acquired hammer toe of left foot (2046451691186028) Other hammer toe(s) (acquired), left foot (M20.42) Active confirmed Problem 025654395564660 Lesion of planta r nerve, 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) Active confirmed Problem Mononeuropathy of lower limb (002138935) Neuritis of left foot (G57.92) Active confirmed Problem Acquired deformity of right foot (13051610662420366 ) PlantarFlexion of metatarsal of right foot (M21.6X1) Active confirmed Problem Acquired deformity of left foot (67467276082336418 ) PlantarFlexion of metatarsal of left foot (M21.6X2) Active confirmed Problem 044272651 Neuroma digital nerve (G58.8) Active confirmed Problem Localized, primary osteoarthritis of the ankle and/or foot (525827802) Arthritis of joint of lesser toe, left (M19.072) Active confirmed Problem Localized, primary osteoarthritis of the ankle and/or foot (874633939) Arthritis of joint of lesser toe, right (M19.071) Active confirmed Plan Of Treatment Pending Test Test Name Order Date MRI : Foot, right 11/15/2013 X ray : Foot, left 2V 01/30/2011 Tc99 3 phase Bone Scan 11/03/2013 Tc99 3 phase Bone Scan 02/25/2017 X ray : Foot, left 3V 12/30/2012 X ray : Foot, right 3V 03/24/2012 X ray : Foot, right 3V 12/30/2012 70661-NGINQYE NAIL, 6 OR MORE 03/05/2017 11471-Jwop Destruction, 1-14 05/05/2023 59753-Dccqusac Plate 11/27/2022, N9970-AWVBU/INJECT, JOINT/BURSA 1 61841, Q5560-DFJGM/INJECT, JOINT/BURSA 1 06/15/2016 88982, S3726-LQBPI/INJECT, JOINT/BURSA 1 07/21/201691462,X9908-RAI TENDON SHEATH/LIGAMENT 0 11/26/2013 31526,J6563-BOL TENDON SHEATH/LIGAMENT 0 01/03/2014 87665, J0702- Neuroma/Injection 01/10/20 03372, J0702- Neuroma/Injection 03/04/20 Insurance Providers Payer Name Payer Address Payer Phone Subscriber Number Group Number Insured Name Patient Relationship to Insured Coverage Start Date Coverage End Date Medicare National [employer] [address] [place] [address] [id number] Juany Lutz Self - patient is the insured [employer] [address] [place] [address] [id number] Juany Lutz Self - patient is the insured Medical (General) History Medical History History ICD Code headaches/migraines mumps measles chicken pox fibromyalgia depression reflux Celiac disease Back,Hip,and Knee pain Arthritis Osteoporosis Numbness Sciatica Surgical History Surgery Date(Month/Year) ovarian cyst resection tonsillectomy colonoscopy 01/03/23 endoscopy 01/03/23
--- OUTSIDE RECORDS SUMMARY | 2024-08-20 11:29 | XMS_ITS ---
Author Organization [facility] [place] Address [address] [place] [address] Care Team Providers Care Tire Recapper Name Role Phone Ajith DUEÑAS, Batool Primary Care Provider Unavail able Black, Stephanie Unavailable [phone] Allergies Allergen (clinical drug ingredient) Drug/Non Drug Allergy documented on EMR Reaction Allergy Type Onset Date Status wheat Celiac disease Drug Allergy Ac tive [place] Celiac disease Allergy Activ e Eggs or Egg-derived Products Celiac disease Drug Allergy Active Lactose (Allergy) Celiac disease Allergy Active REASON FOR VISIT Wart(s), Foot pain Medications Medication SIG (Take, Route, Frequency, Duration) Notes Start Date End Date Status Citalopram Hydrobromide 30 1 tablet Oral ly Three times a day Not-Taking Night Splint AFO - L1930 as directed 12/13/2013 Not-Taking PriLOSEC Not-Taking [place]-Gel - as directed Externally OTC Not-Taking Align 4 MG as directed Orally OTC Not-Taking vitamin OTC Not-Taking Stambaugh 3 1200 MG 1 capsule Orally Onc e a day for 30 day(s) Not-Taking DULoxetine HCl 60 MG 1 capsule Orally On ce a day for 30 day(s) Active D3 Vitamin Not-Takin g B-12 3000 MCG as directed Sublingual Not-Taking ZyrTEC Allergy 10 MG 2 capsules Orally O nce a day for 30 day(s) OTC Active Carisoprodol 350 MG 1 tablet as needed Orally Four times a day Active NexIUM 24HR 20 MG 1 capsule Orally Onc e a day for 30 day(s) OTC Active Lexapro Not-Taking Gabapentin 100 MG Orally No t-Taking Naprosyn Not-Taking Physical Therapy 3-4x per week for 3- 4 weeks Not-Taking Motrin Not-Taking Nortriptyline HCl No t-Taking Work Note . . . Pt needs to park closer to the door due to Right Foot issue/ limit walking for . 11/15/2013 Not-Taking Social History Tobacco Use: Social History Observation [...] Problem Status W/U Status Risk Notes Problem Mononeuropathy of lower limb (289718173) Neuritis of left foot (G57.92) Active confirmed Vital Signs Blood pressure systolic 120 mm Hg 08/14/19 24 Blood pressure diastolic 80 mm Hg 024 Height 5ft 3in in 08/14/2023 Weight 155 lbs 08/14/2023 BMI 27.45 kg/m2 08/14/2023 Encounters Encounter Location Date Provider Diagnosis [facility] [address] [address] 08/14/2023 Stephanie Black Left foot pain M79.672 ; Neuritis of left foot G57.92 and Pain in left foot M79.672 Assessments Encounter Date Diagnosis (ICD Code) Assessment Notes Treatment Notes Treatment Clinical Notes Section Notes 08/14/2023 Left foot pain (ICD-10 - M79.672) 08/14/2023 Neuritis of left foot (ICD-10 - G57.92) 08/14/2023 Pain in left foot (ICD-10 - M79.672) Plan Of Treatment Next Appt Details Follow Up: prn, Reason: Progress Notes * Juany PERRY ADOB: [birth year] (67 yo F)Acc No.[id number]:08/14/2023 Progress Note Patient:?Juany Perry Provider:?Stephanie Escobar DPM :1955???Age:67 Y???Sex:Female D ate:08/14/2023 Address:[address] [place], [place] [address] [id number] Pcp:Batool Canseco NP Subjective: * Chief Complaints: * ???Wart(s)Foot pain * HPI: ???Skin problems:?Pt States PCP Visit: ?DATE?06/03/2023 ???Foot Pain:?Nature:?burning, tingling, shooting, radiating.?Location:?LEFT.?Duration:?several months.?Onset:?unknown.?Course:?worse.?Aggrevated:?, walking.?Treatments:?rest/alter normal daily activity.? * ROS:?General/Constitutional:?Nausea?denies.?Vomiting?denies.?Hunger Thirst?denies.?Loss appetite?denies.?Chills?denies.?Fatigue?denies.?Fever?denies.?Night Sweats?denies.?Unexplained weight loss?denies.?Unexplained weight gain?denies.?HEENTM:?Dentures?denies.?Dizziness?denies.?Glasses/contacts?admits.?Retinopathy?de nies.?Blurred/double vision?denies.?TMJ?denies.?Discharge/drainage?denies.?Implants?denies.?Sore throat?denies.?Dental implants?denies.?Hard of hearing ?denies.?Difficulty chewing/swallowing/speaking?denies.?Nose bleeds?denies.?Sore mouth?denies.?Respiratory:?On Oxygen?denies.?Pneumonia/pleurisy?denies.?Bronchitis?denies.?Emphysema?denies.?C oughing?denies.?Cough blood?denies.?Shortness of breath?denies.?Wheezing?denies.?Cardiovascular:?Pacemaker?denies.?MVP?denies.?WPW?denies.?CHF?denies.?Heart attack?denies.?Septal defect?denies.?Rapid beat?admits.?Chest pain ?denies.?Atrial Fib.?denies.?Murmur/Palpitations?denies.?Gastrointestinal:?Hemorrhoids?denies.?Stomach/Abdominal pain?denies.?Dark blood stool?denies.?Irritable bowel ?denies.?Constipation?denies.?Diarrhea?denies.?Hematology:?Swelling?denies.?Clots?denies.?Varicose Veins?denies.?Bruising?denies.?Bleeding problem?denies.?Genitourinary:?Blood urine?denies.?Frequent/Painfu/urination/bladder control?denies.?Kidney stones?denies.?Infection (UTI)?denies.?Nephropathy?denies.?sex trans dis (STD)?denies.?Prostate?denies.?Musculoskeletal:?Hammertoes?admits.?Bunions?admits.?Back Pain?admits.?Muscle Cramps/ Resting?denies.?Muscle cramps / walking?denies.?Generalized aches and pains?admits.?Weakness?denies.?Integ.:?Watts?denies.?Scars?denies.?Corns/calluses?admits.?Ingrown nails?denies.?Painful nails?denies.?Open Sores?denies.?Rashes?denies.?Neurologic:?Difficulty sleeping?admits.?Brain disorder?denies.?Numbness?admits.?Balance trouble?admits.?Confusion?denies.?Fainting/blackouts?denies.?Tingling?admits.?Tr emors?denies.? * Medical History:? * Surgical History:?ovarian cy st resection tonsillectomy colonoscopy 01/03/23endoscopy 01/03/23 * Hospitalization/Major Diagno stic Procedure:?Denies Past Hospitalization * Family History:?Mother: mario santoro, diagnosed with Unspecified essential hypertension.?Father: , diagnosed with Diabetic - NIDDM, Unspecified essential hypertension.? * Social History:?Tobacco Use:?Tobacco Use/Smoking?Are you a:?nonsmoker ?Additional Findings: Tobacco Non-User?Current non-smoker ?Tobacco use other than smoking?Are you an other tobacco user??No ???Drugs/Alcohol:?Drugs?Have you used drugs other than those for medical reasons in the past 12 months??No ?Alcohol Screen?Did you have a drink containing alcohol in the past year??No ?Points?0 ?Interpretation?Negative ???Miscellaneous:?no Caffeine. ?Children: yes, 2. ?Exercise: yes, swimming, walking. ?Marital status: . ?Occupation: Retired:[employer]. * Medications:?TakingZyrTEC Al lergy 10 MG Capsule 2 capsules Orally Once a day, Notes: OTCNexIUM 24HR 20 MG Capsule Delayed Release 1 capsule Orally Once a day, Notes: OTCCarisoprodol 350 MG Tablet 1 tablet as needed Orally Four times a dayDULoxetine HCl 60 MG Capsule Delayed Release Particles 1 capsule Orally Once a dayTaking ZyrTEC Allergy 10 MG Capsule 2 capsules Orally Once a day, Notes: OTCTaking NexIUM 24HR 20 MG Capsule Delayed Release 1 capsule Orally Once a day, Notes: OTCTaking Carisoprodol 350 MG Tablet 1 tablet as needed Orally Four times a dayTaking DULoxetine HCl 60 MG Capsule Delayed Release Particles 1 capsule Orally Once a dayNot-Taking/PRNB-12 3000 MCG Tablet Sublingual as directed Sublingual D3 Vitamin Stambaugh 3 1200 MG Capsule 1 capsule Orally Once a dayvitamin , Notes: OTCAlign 4 MG Capsule as directed Orally , Notes: OTCExcel-Gel - Gel as directed Externally , Notes: OTCNight Splint AFO - L1930 as directed Citalopram Hydrobromide 30 Tablet 1 tablet Orally Three times a dayPriLOSEC Motrin Physical Therapy 3-4x per week for 3-4 weeks Work Note . . . . Pt needs to park closer to the door due to Right Foot issue/ limit walkingNortriptyline HCl Naprosyn Lexapro Gabapentin 100 MG Capsule Orally Medication List reviewed and reconciled with the patientNot-Taking/PRN B-12 3000 MCG Tablet Sublingual as directed Sublingual Not-Taking/PRN D3 Vitamin Not-Taking/PRN Stambaugh 3 1200 MG Capsule 1 capsule Orally Once a dayNot-Taking/PRN vitamin , Notes: OTCNot-Taking/PRN Align 4 MG Capsule as directed Orally , Notes: OTCNot-Taking/PRN [place]-Gel - Gel as directed Externally , Notes: OTCNot-Taking/PRN Night Splint AFO - L1930 as directed Not-Taking/PRN Citalopram Hydrobromide 30 Tablet 1 tablet Orally Three times a dayNot- Taking/PRN PriLOSEC Not-Taking/PRN Motrin Not-Taking/PRN Physical Therapy 3-4x per week for 3-4 weeks Not-Taking/PRN Work Note . . . . Pt needs to park closer to the door due to Right Foot issue/ limit walkingNot-Taking/PRN Nortriptyline HCl Not-Taking/PRN Naprosyn Not-Taking/PRN Lexapro Not-Taking/PRN Gabapentin 100 MG Capsule Orally Medication List reviewed and reconciled with the patient * Allergies:?wheat: Celiac dis ease - AllergyEggs or Egg-derived Products: Celiac diseaseCorn: Celiac diseaseLactose (Allergy): Celiac diseaseyes[Allergies Verified] Objective: * Vitals:?Ht:5ft 3in, Wt:155, BMI:27.45, Shoe size:10W, BP:120/80 mm Hg, Ht-cm: 160.02 cm, Wt-k.31 kg. * Examination: ???Orthopedic: ?GAIT ABNORMALITY:?antalgic.?BUNION:?Medially prominent 1st MPJ , LEFT.?DIGITAL DEFORMITIES:?Digital contracture, PIPJ, 2-5 B/L, non-reducible with WB or to push-up test, no over, nor underlapping?,?.?MPJ PATHOLOGY:?NO Pain, swelling, and inflammation to plantar MPJ(s), 2,3?LEFT, No MPJ pain with ROM, [ - ] Ecchymosis, No?Pain, swelling, and inflammation to plantar MPJ(s) 2,3? Right.?Neurological: ?SENSORY:?Neurological exam reveals intact sensorium, pain sensation normal, vibration sensation intact, pinprick sensation is normal in the lower extremities, , Pt relates , burning , pins and needles sensation , shooting/radiating sensation , Left.?TINEL'S COMPRESSION:? Negative tarsal tunnel, ally pedis, and medial calcaneal nerves, Left.?Neuroma Pain: ?PALPATION:?NO? Pain with direct palpation of the intermetatarsal space , 2nd interspace , , LEFT ,?No interspace pain noted on palpation no pain with direct palpation 2nd right?.?General Examination: ?GENERAL APPEARANCE:?good attention to hygiene, no acute distress, well developed, well nourished.?Vascular: ?DP PULSES:?2/4, B/L.?PT PULSES:?2/4, B/L.?Dermatologic: ?VERRUCA:?NO FURTHER SIGN of mosaic papule(s) with skin lines now evident and visible.? Assessment: * Assessment: 1.?Left foot pain - M79.672? 2.?Neuritis of left foot - G57.92 (Primary), Acute problem, Complicated w/ Multiple Tx Options(4),Dx New problem, Prognosis Uncertain (4)?3.?Pain in left foot - M79.672? Plan: * Treatment: * Procedure Codes:? * Preventive Medicine:? ??Counseling:?Discussion:?-14: Office or other outpatient visit for the evaluation and management of an established patient, which required a medically appropriate history and/or examination and MODERATE level of DECISION MAKING for: 1 OR MORE CHRONIC PROBLEM(S) THATS WORSENING, 2 STABLE CHRONIC PROBLEMS, A NEWLY DIAGNOSED PROBLEM WITH UNCERTAIN PROGNOSIS, AN ACUTE COMPLICATED INJURY WITH MULTIPLE TREATMENT OPTIONS, OR AN ACUTE PROBLEM WITH ACCOMPANYING SYSTEMIC SYMPTOMS, THAT POSE(S) A MODERATE RISK OF MORBIDITY. THIS CONDITION MAY ALSO INCLUDE RX DRUG MANAGEMENT, OR A DECISON FOR MINOR SURGERY. The visit on the day of the encounter encompassed interpreting the data and educating the patient as to the nature of their condition, treatment options available according to their individual PMH, meds, allergies, and overall health/living conditions, as well as any potential risks or complications that may occur from a failure to adhere to, and participate in, the recommended course of therapy. The discussion included a complete verbal, and/or written explanation of the examination results, any x-rays taken, the proposed diagnosis, and outline of the treatment plan. A schedule for future care needs was also explained. The patient verbalized an understanding of the instructions at this time and agreed to be an active participant in their treatment. If the patient should think of any questions or concerns after the visit, I have encouraged the patient to call the office.?Neuritis/Neuropathy:?The patient was counseled on the diagnosis, possible etiologies (including mechanical stress, injury, entrapment, chemotherapy, diabetes, vertebral disk herniation if hx), treatment options, and importance for adherence to recommendations in order to address the patients Neuritis/Neuropathy. The advantages and disadvantages re: Accomidative mechanical support/offloading, Topical vs PO analgesics including aspercream/Voltaren gel/Lidoderm patches/Neurontin/Lyrica along with their potential side effects were discussed with the patient to their satisfaction. Also discussed the use of therapeutic injectable cortisone if needed. Surgical treatment, if considered an option, was discussed as well. If surgery is warranted, we discussed the potential successful outcomes as well as the possible complications such as failure, painful scar, permanent tingling/numbness/neuralgea/or intractable pain. Patient questions re: medication use, dosage, and possible side effects and drug interactions were reviewed and the answers to each understood. If the condition worsens, the patient was instructed to contact the office for an appointment. The patient verbally confirmed a full understanding of the above, Discussed that neuropathy could be related to back arthritis/injury, recommend follow up with PCP, Recommended Topical analgesics including aspercream/Voltaren gel/Lidoderm patches.? * Follow Up:?prn * Images: * Sign off status: Completed true * Provider:?Stephanie Escobar DPM Date:?2023 Generated for Amber beasley/Priscila/Albaro on:?08/20/2024 11:28 AM EDT History and Physical Notes * HPI (History of Present Illness) Category Sub-Category Detail Notes Category Not es Skin problems Pt States PCP Visit: DATE: 06/03/2023 Foot Pain Nature: burning, tinglin g, shooting, radiating Location: LEFT Duration: several months Onset: unknown Course: worse Aggravated: , walking Treatments: rest/alter normal da mikel activity Examination Category Sub-Category Detail Notes Category Not es Ingrown Nail INSPECTION: Neuroma Pain PALPATION: NO Pain with dir ect palpation of the intermetatarsal space , 2nd interspace , , LEFT , No interspace pain noted on palpation no pain with direct palpation 2nd right Neurological SENSORY: Neurological exa m reveals intact sensorium, pain sensation normal, vibration sensation intact, pinprick sensation is normal in the lower extremities, , Pt relates , burning , pins and needles sensation , shooting/radiating sensation , Left TINEL'S COMPRESSION: Negative tarsal [place], ally pedis, and medial calcaneal nerves, Left Dermatologic VERRUCA: NO FURTHER SIGN of mosaic papule(s) with skin lines now evident and visible Orthopedic GAIT ABNORMALITY: antalgic BUNION: Medially prominent 1 st MPJ , LEFT FOOTWEAR: DIGITAL DEFORMITIES: Digital contracture , PIPJ, 2-5 B/L, non-reducible with WB or to push-up test, no over, nor underlapping , MPJ PATHOLOGY: NO Pain, swelling, a nd inflammation to plantar MPJ(s), 2,3 LEFT, No MPJ pain with ROM, [ - ] Ecchymosis, No Pain, swelling, and inflammation to plantar MPJ(s) 2,3 Right General Examination GENERAL APPEARANCE: good att ention to hygiene, no acute distress, well developed, well nourished Vascular DP PULSES (B): 2/4, B/L PT PULSES (B): 2/4, B/L
--- OUTSIDE RECORDS SUMMARY | 2024-08-20 11:29 | XMS_ITS ---
Author Organization [facility] Cedric yevgeniy Ezequiel Address [address] [address] Care Team Providers Care Excellence Coach Name Role Phone Ajith DUEÑAS, Batool Primary Care Provider Unavail able Black, Stephanie Unavailable [phone] Allergies Allergen (clinical drug ingredient) Drug/Non Drug Allergy documented on EMR Reaction Allergy Type Onset Date Status wheat Celiac disease Drug Allergy Ac tive [place] Celiac disease Allergy Activ e Eggs or Egg-derived Products Celiac disease Drug Allergy Active Lactose (Allergy) Celiac disease Allergy Active REASON FOR VISIT PCP - 07/2022, Foot pain, Painful Toe(s), Wart(s) Medications Medication SIG (Take, Route, Frequency, Duration) Notes Start Date End Date Status Gabapentin 100 MG Orally No t-Taking Work Note . . . Pt needs to park closer to the door due to Right Foot issue/ limit walking for . 11/15/2013 Not-Taking Nortriptyline HCl No t-Taking Naprosyn Not-Taking Lexapro Not-Taking Night Splint AFO - L1930 as directed 12/13/2013 Not-Taking Citalopram Hydrobromide 30 1 tablet Oral ly Three times a day Not-Taking Physical Therapy 3-4x per week for 3- 4 weeks Not-Taking PriLOSEC Not-Taking Motrin Not-Taking Align 4 MG as directed Orally OTC Not-Taking [place]-Gel - as directed Externally OTC Not-Taking D3 Vitamin Not-Takin g [place] 3 1200 MG 1 capsule Orally Onc e a day for 30 day(s) Not-Taking vitamin OTC Not-Taking ZyrTEC Allergy 10 MG 2 capsules Orally O nce a day for 30 day(s) OTC Active DULoxetine HCl 60 MG 1 capsule Orally On ce a day for 30 day(s) Active B-12 3000 MCG as directed Sublingual Not-Taking NexIUM 24HR 20 MG 1 capsule Orally Onc e a day for 30 day(s) OTC Active Carisoprodol 350 MG 1 tablet as needed Orally Four times a day Active Social History Tobacco Use: Social History [...] Problem Status W/U Status Risk Notes Problem Localized, primary osteoarthritis of the ankle and/or foot (908380471) Arthritis of joint of lesser toe, right (M19.071) Active confirmed Problem Localized, primary osteoarthritis of the ankle and/or foot (753554023) Arthritis of joint of lesser toe, left (M19.072) Active confirmed Problem Plantar wart (74067689) Plantar wart (B07.0) Active confirmed Vital Signs Blood pressure systolic 120 mm Hg 05/05/20 23 Blood pressure diastolic 80 mm Hg 023 Height 5ft 3in in 05/05/2023 Weight 155 lbs 05/05/2023 BMI 27.45 kg/m2 05/05/2023 Procedures Procedure Date Ordered Date Performed Result Body Sit e 09594-Kyhy Destruction, 1-14 05/05/2023 N/A Encounters Encounter Location Date Provider Diagnosis [facility] [address] [place] [address] 05/05/2023 Stephanie Black Metatarsalgia of rig ht foot M77.41 ; Other hammer toe(s) (acquired), left foot M20.42 ; Pain in left foot M79.672 ; Bursitis of intermetatarsal bursa of left foot M77.52 ; Metatarsalgia, left foot M77.42 ; Neuritis M79.2 ; Bursitis of intermetatarsal bursa of right foot M77.51 ; Lesion of plantar nerve, left lower limb G57.62 ; Pain in right foot M79.671 ; Pain in right toe(s) M79.674 ; Other hammer toe(s) (acquired), right foot M20.41 ; Arthritis of joint of lesser toe, right M19.071 ; Pain in left toe(s) M79.675 ; Arthritis of joint of lesser toe, left M19.072 and Plantar wart B07.0 Assessments Encounter Date Diagnosis (ICD Code) Assessment Notes Treatment Notes Treatment Clinical Notes Section Notes 05/05/2023 Metatarsalgia of right foot (ICD-10 - M77.41) 05/05/2023 Other hammer toe(s) (acquired), left foot (ICD-10 - M20.42) 05/05/2023 Pain in left foot (ICD-10 - M79.672) 05/05/2023 Bursitis of intermetatarsal bursa of left foot (ICD-10 - M77.52) 05/05/2023 Metatarsalgia, left foot (ICD-10 - M77.42) 05/05/2023 Neuritis (ICD-10 - M79.2) 05/05/2023 Bursitis of intermetatarsal bursa of right foot (ICD-10 - M77.51) 05/05/2023 Lesion of plantar nerve, left lower limb (ICD-10 - G57.62) 05/05/2023 Pain in right foot (ICD-10 - M79.671) 05/05/2023 Pain in right toe(s) (ICD-10 - M79.674) 05/05/2023 Other hammer toe(s) (acquired), right foot (ICD-10 - M20.41) 05/05/2023 Arthritis of joint of lesser toe, right (ICD-10 - M19.071) 05/05/2023 Pain in left toe(s) (ICD-10 - M79.675) 05/05/2023 Arthritis of joint of lesser toe, left (ICD-10 - M19.072) 05/05/2023 Plantar wart (ICD-10 - B07.0) Plan Of Treatment Pending Test Test Name Order Date 33984-Nhud Destruction, 1-14 05/05/2023 Next Appt Details Follow Up: prn, Reason: Procedure Notes * Category Sub-Category Detail Notes Wart Treatment Procedure Verrucae were de brided to pin-point bleeding margins with sterile 15 surgical blade, silver nitrate chemocautery applied, recomm. immune-boosting meds such as zinc, recomm. follow up with topical chemosurgical agents, Pt defers any other forms of tx (55585) Progress Notes * VICKY Juany ADOB: (67 yo F)Acc No.[id number]:05/05/2023 Progress Notes Patient:?RikharishJuany A Provider:?Stephanie Escobar DPM :1955???Age:67 Y???Sex:Female D ate:05/05/2023 Address:[address] [place], [place] [id number] Pcp:Batool Canseco NP Subjective: * Chief Complaints: * ???PCP - 07/2022Foot painPai nful Toe(s)Wart(s) * HPI: ???Foot Pain:?Nature:?swelling , numbness.?Location:?Bottom, Forefoot,b/l.?Duration:?several months (4).?Onset:?gradual.?Course:?, improved.?Aggrevated:?standing , walking , especially barefoot.?Treatments:?change in shoes, metatarsal pads , cortisone injection (2L).?Severity/Quality:?, mild , States pain 1 on a scale to max of 10.?Toe pain:?Nature:?tenderness.?Location:?Great toe , 2nd toe.?Duration:?several weeks.?Onset/Cause:?unknown.?Course:?worse.?Aggrevated by:?shoes, any pressure.?Treatments:?change in shoes , rest.?Skin problems:?Pt States PCP Visit: ?DATE?11/13/2022 * ROS:?General/Constitutional:?Nausea?denies.?Vomiting?denies.?Hunger Thirst?denies.?Loss appetite?denies.?Chills?denies.?Fatigue?denies.?Fever?denies.?Night Sweats?denies.?Unexplained weight loss?denies.?Unexplained [...] swimming, walking. ?Marital status: . 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 * Medications:?TakingZyrTEC Al lergy 10 MG [...] Tablet Sublingual as directed Sublingual D3 Vitamin [place] 3 1200 MG Capsule 1 capsule Orally [...] as directed Sublingual Not-Taking/PRN D3 Vitamin Not-Taking/PRN [place] 3 1200 MG Capsule 1 capsule Orally Once a dayNot-Taking/PRN vitamin , Notes: OTCNot-Taking/PRN Align 4 MG Capsule as directed Orally , Notes: OTCNot-Taking/PRN [place]-Gel - Gel as directed Externally , Notes: [...] diseaseLactose (Allergy): Celiac diseaseyes[Allergies Verified] Objective: * Vitals:?Ht: 5ft 3in, Wt:155, BMI:27.45, Shoe size: 10W, BP:120/80 mm Hg, Ht-cm: 160.02 cm, Wt-k.31 kg. * Examination: ???Orthopedic: ?GAIT ABNORMALITY:?antalgic.?BUNION:?Medially prominent 1st MPJ , LEFT.?DIGITAL DEFORMITIES:?Digital contracture, PIPJ, 2-5 B/L, non-reducible with WB or to push-up test, no over, nor underlapping?, Erythema with mild POP lateral IPJ of? TA and PIPJ medial T1, No Pain on ROM TA T1.?MPJ PATHOLOGY:?NO Pain, swelling, and inflammation to plantar MPJ(s), 2,3?LEFT, No MPJ pain with ROM, [ - ] Ecchymosis, No?Pain, swelling, and inflammation to plantar MPJ(s) 2,3? Right.?FOOTWEAR:? shoe gear properties exacerbate patients foot/toe deformity.?Neurological: ?SENSORY:?Neurological exam reveals intact sensorium, pain sensation normal, vibration sensation intact, pinprick sensation is normal in the lower extremities, Pt denies, anesthesia, burning, paresthesia, tingling, B/L.?TINEL'S COMPRESSION:? Negative tarsal tunnel, ally pedis, and medial calcaneal nerves, Left.?Neuroma Pain: ?PALPATION:??LESS Pain with direct palpation of the intermetatarsal space , 2nd interspace , positive Mary's click , LEFT ,?No interspace pain noted on palpation no pain with direct palpation 2nd right 90 percent.?General Examination: ?GENERAL APPEARANCE:?good attention to hygiene, no acute distress, well developed, well nourished.?Vascular: ?DP PULSES:?2/4, B/L.?PT PULSES:?2/4, B/L.?Dermatologic: ?VERRUCA:?Reveals a Single , multi-loculated , mosaic-patterned, round, raised, flat-topped, petechial bleeding papule(s), with cauliflower appearance and interruption of skin lines, pain to lateral compression, and size estimated at _3 mm diameter LEFT FOREFOOT.? Assessment: * Assessment: 1.?Other hammer toe(s) (acqu ired), left foot - M20.42 (Primary)?2.?Metatarsalgia of right foot - M77.41?3.?Pain in left foot - M79.672?4.?Bursitis of intermetatarsal bursa of left foot - M77.52?5.?Metatarsalgia, left foot - M77.42?6.?Neuritis - M79.2?7.?Bursitis of intermetatarsal bursa of right foot - M77.51?8.?Lesion of plantar nerve, left lower limb - G57.62?9.?Pain in right foot - M79.671?10.?Pain in right toe(s) - M79.674?11.?Other hammer toe(s) (acquired), right foot - M20.41?12.?Arthritis of joint of lesser toe, right - M19.071?13.?Pain in left toe(s) - M79.675?14.?Arthritis of joint of lesser toe, left - M19.072?15.?Plantar wart - B07.0? Plan: * Treatment: * Procedures:?Wart Treatment:?Procedure?Verrucae were debrided to pin-point bleeding margins with sterile 15 surgical blade, silver nitrate chemocautery applied, recomm. immune-boosting meds such as zinc, recomm. follow up with topical chemosurgical agents, Pt defers any other forms of tx (03553).? * Procedure Codes:?04940 Wart Destruction, 1-14, Modifiers: XS * Preventive Medicine:? ??Counseling:?Discussion:?-13: Office or other outpatient visit for the evaluation and management of an established patient, which required a medically appropriate history and/or examination and LOW level of DECISION MAKING for: 1 STABLE ACUTE UNCOMPLICATED PROBLEM, 2 OR MORE MINOR PROBLEMS, OR 1 STABLE CHRONIC PROBLEM, THAT POSE(S) A LOW RISK FOR MORBIDITY/MORTALITY. The visit on the day of the [...] have encouraged the patient to call the office, Given recent successful results to treatment, The patient wishes to continue with the present treatment plan for their condition.?Digital Treatment:?HT- I explained to the patient the possible etiologies of Hammertoes, including genetics/foot type/shoegear/activity level/exercise routine and the risks/benefits of all the different treatment options for their pain including: No treatment at all, Rest, Ice, New/supportive/wider/deeper Shoegear, Digital Padding/Strapping/Taping/Bracing/Gel protective sleeves, Foot/Ankle AFO Bracing, Stretching exercises, Deep Tissue Massage, Arch support/shoe inserts with splay metatarsal padding, and Custom orthoses. I insisted that any digital devices be removed daily and not worn overnight for safety. The patient is to carefully examine the toes daily for any skin irritation while using any splinting or padding device. The advantages and disadvantages of each option were discussed and the patients questions re: shoegear, padding, custom vs prefabricated inserts, activity level, and consistency in home treatment regimens for optimal success were answered to their verbally confirmed satisfaction- pt is fitted with a toe spacer to reduce preesure on the toes.? * Follow Up:?prn * Images: * Sign off status: Completed true * Provider:?Stephanie Escobar DPM Date:?2022 Generated for Amber beasley/Priscila/Albaro on:?08/20/2024 11:28 AM EDT History and Physical Notes * HPI (History of Present Illness) Category Sub-Category Detail Notes Category Not es Toe pain Nature: tenderness Location: Great toe , 2nd toe Duration: several weeks Onset/Cause: unknown Course: worse Aggravated by: shoes, any pressure Treatments: change in shoes , re st Skin problems Pt States PCP Visit: DATE: 11/13/2022 Foot Pain Nature: swelling , numbness Location: Bottom, Forefoot,b/l Duration: several months (4) Onset: gradual Course: , improved Aggravated: standing , walking , especially barefoot Treatments: change in shoes, met atarsal pads , cortisone injection (2L) Severity/Quality: , mild , States pain 1 on a scale to max of 10 Examination Category Sub-Category Detail Notes Category Not es Ingrown Nail INSPECTION: Neuroma Pain PALPATION: LESS Pain with d irect palpation of the intermetatarsal space , 2nd interspace , positive Mary's click , LEFT , No interspace pain noted on palpation no pain with direct palpation 2nd right 90 percent Neurological SENSORY: Neurological exa m reveals intact sensorium, pain sensation normal, vibration sensation intact, pinprick sensation is normal in the lower extremities, Pt denies, anesthesia, burning, paresthesia, tingling, B/L TINEL'S COMPRESSION: Negative tarsal ky dunia, ally pedis, and medial calcaneal nerves, Left Dermatologic VERRUCA: Reveals a Single , multi-loculated , mosaic-patterned, round, raised, flat-topped, petechial bleeding papule(s), with cauliflower appearance and interruption of skin lines, pain to lateral compression, and size estimated at _3 mm diameter LEFT FOREFOOT Orthopedic GAIT ABNORMALITY: antalgic BUNION: Medially prominent 1 st MPJ , LEFT FOOTWEAR: shoe gear properties exacerbate patients foot/toe deformity DIGITAL DEFORMITIES: Digital contracture , PIPJ, 2-5 B/L, non-reducible with WB or to push-up test, no over, nor underlapping , Erythema with mild POP lateral IPJ of TA and PIPJ medial T1, No Pain on ROM TA T1 MPJ PATHOLOGY: NO Pain, swelling, a nd [...]
--- OUTSIDE RECORDS SUMMARY | 2024-08-20 11:29 | XMS_ITS | Data Portability ---
Author Organization [place] [facility] [place] [place] Address [address] [place] [address] Care Team Providers Care Mortgage Loan Underwriter Name Role Phone CHELI COONEY Primary Care Provider CHELI COONEY Referring Provider Assessment Encounter Date Assessment Date Assessment LastModified by Organization Details LastModified Time 07/14/2024 07/14/2024 Patient symptoms are consistent with a rotator cuff tear to the infraspinatus. She does have weakness, but thinks it is not new. Aggravating factors were discussed. We discussed physical therapy and she was eager to proceed. She had a corticosteroid injection in the past for similar symptoms and feels that it offered relief. She would like to try this again. Patient tolerated the injection well. Postinjection instructions given. Frequency of injection was reviewed. Patient will follow-up in [address] Simon to assess progress with therapy and after the injection., sooner for any complications. All questions answered to their satisfaction. Not available 07/14/2024 11:57:50 Plan of Treatment Reminders Order Date Submit Date Provider Last Modified By Organization Details Last Modified Time Details Appointments ESTABLISH ED/AONE REFERRAL 2024 08:30A Silvana Simon MD Not available Not available Not available Lab None recorded. Referral physical therapist referral - Frequency : 2 visits per week for 6 weeksTher apy: Evaluate and TreatModa lities:As neededPre cautions - if any:Goals : ROM, HEP, Decrease Pain, Increase Strength and Increase Endurance . Scapular and shoulder stabiliza tion 2024 025 [facility] [place], [address] [place], [address], 07/29/2024 11:48:05 Procedures None recorded. Surgeries None recorded. Imaging XR, shoulder, 2 or more view 2024 [facility] 1 [facility], [address], [place], [address], 07/14/2024 13:41:29 Medication Orders lidocaine (PF) 100 mg/5 mL (2 %) injection syringe 2024 [place] [address] 1 [facility], [address] [place], [address], 07/14/2024 13:41:29 triamcino lone acetonide 40 mg/mL suspensio n for injection 2024 [place] [address] 1 [facility] [address], [address] [place], [address], 07/14/2024 13:41:29 Patient TargetsNo targets recorded. Patient InstructionsNo instructions recorded. Reason for Referral Physical Therapist Referral for Nontraumatic rotator cuff tear Frequency: 2 visits per week for 6 weeksTherapy: Evaluate and TreatModalities:As neededPrecautions - if any:Goals: ROM, HEP, Decrease Pain, Increase Strength and Increase Endurance. Scapular and shoulder stabilization Referring Physician: Bc Rg, Orthopedic Surgery, Encounter Date: 07/14/2024 Problems Name Problem SNOMED Code Status Onset Date Resolution Date Notes Provider Name and Address Organization Details Recorded Time Nontraumatic rotator cuff tear 488091843 Active 2024 [facility] [address], [place], [address], [place] [facility] [place], P 11:56:34 Problem Notes None recorded. Procedures Surgical History Date Name Laterality Status Provider Name and Address Organization Details Recorded Time BON Subacromial Shoulder Inj completed [facility] PA[facility] [address], [place], [address], [place] [facility] 07/14/2024 11:56:09 Imaging Results None recorded. Procedure Notes None recorded. Medical Equipment None Reported. Medications Name Sig Start Date Stop Date Status Note LastModified by Organization Details LastModified Time triamcinolone acetonide 40 mg/mL suspension for injection Take 40 mg by injection route. 2024 active Not Available Not Available Not Avai lable lidocaine (PF) 100 mg/5 mL (2 %) injection syringe Take 4 mL by injection route. 2024 active Not Available Not Available Not Avai lable Vitals None Recorded Social History None recorded. Functional Status None recorded. Mental Status None recorded. Family History Nothing Reported. Medical History No medical history recorded. Gynecological HistoryNo gynecological history recorded. Obstetrics History GPAL:G 0 P 0 0 0 0 Past Encounters Encounter ID Performer Location Encounter Start Date Encounter Closed Date Diagnosis/Indication Diagnosis SNOMED-CT Code Diagnosis ICD10 Code Diagnosis Note [id number] Kristian Simon MD [facility] [address] [place] [phone] 07/14/2024 11:15:23 07/14/2024 11:55:28 Pain of left shoulder region 4331479752 M25.512 Nontraumat ic rotator cuff tear 569546394 M75.102 Health Concerns Section Related Observation LastModified by Organization Detai ls LastModified Time None Recorded Concern Status LastModified by Organization Details LastModified Time None Recorded Advance Directives Directive None Recorded Payers Encounter Date Sequence Insurance Name Policy Number Policy Courtney Covered Member ID Courtney Member ID Guarantor Name 07/14/2024 1 [place]ICARE [place]: [place]GS Juany Lutz [id number] Juany Lutz 07/14/2024 2 [place]ICARE [place]PPLE[place]) [id number] Juany Lutz [id number] Juany Lutz Notes Date Note Type Note Provider Name and Address Organization Details Recorded Time 07/14/2024 text/html Patient is a 68-year-old female who presents today with left shoulder pain. Symptoms started in May 2024. 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 With her ongoing symptoms she presents today for orthopedic consultation. She had a history of bursitis in her shoulder many years ago. She did do physical therapy in 2019 for her left shoulder after rotator cuff repair. No numbness or tingling. No redness or warmth. [facility] PA[facility] [address], [place], [address], [place] [facility] 07/14/2024 11:59:48 OBGyn Episode No OBEpisode recorded.
--- OUTSIDE RECORDS SUMMARY | 2024-08-20 11:29 | XMS_ITS ---
Author Organization [facility] Cedric yevgeniy Ezequiel Address [address] [facility] [place] [address] Care Team Providers Care Fuse Maker Name Role Phone Ajith DUEÑAS, Batool Primary Care Provider Unavail able Black, Stephanie Unavailable [phone] Allergies Allergen (clinical drug ingredient) Drug/Non Drug Allergy documented on EMR Reaction Allergy Type Onset Date Status wheat Celiac disease Drug Allergy Ac tive [place] Celiac disease Allergy Activ e Eggs or Egg-derived Products Celiac disease Drug Allergy Active Lactose (Allergy) Celiac disease Allergy Active REASON FOR VISIT Foot pain Medications Medication SIG (Take, Route, Frequency, Duration) Notes Start Date End Date Status Physical Therapy 3-4x per week for 3- 4 weeks Not-Taking Motrin Not-Taking Work Note . . . Pt needs to park closer to the door due to Right Foot issue/ limit walking for . 11/15/2013 Not-Taking PriLOSEC Not-Taking Citalopram Hydrobromide 30 1 tablet Oral ly Three times a day Not-Taking vitamin OTC Not-Taking [place] 3 1200 MG 1 capsule Orally Onc e a day for 30 day(s) Not-Taking Boswell-Gel - as directed Externally OTC Not-Taking Align 4 MG as directed Orally OTC Not-Taking Night Splint AFO - L1930 as directed 12/13/2013 Not-Taking DULoxetine HCl 60 MG 1 capsule Orally On ce a day for 30 day(s) Active Carisoprodol 350 MG 1 tablet as needed Orally Four times a day Active D3 Vitamin Not-Takin g B-12 3000 MCG as directed Sublingual Not-Taking NexIUM 24HR 20 MG 1 capsule Orally Onc e a day for 30 day(s) OTC Active Lexapro Not-Taking Naprosyn Not-Taking Gabapentin 100 MG Orally No t-Taking Nortriptyline HCl No t-Taking ZyrTEC Allergy 10 MG 2 capsules Orally O nce a day for 30 day(s) OTC Active Social History Tobacco Use: Social History [...] Problem Status W/U Status Risk Notes Problem [id number] Lesion of plantar nerve, 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) Active confirmed Vital Signs Height 5ft 3in in 03/04/2023 Weight 155 lbs 03/04/2023 BMI 27.45 kg/m2 03/04/2023 Procedures Procedure Date Ordered Date Performed Result Body Sit e 57346, J0702- Neuroma/Injection 03/04/2023 N/A Encounters Encounter Location Date Provider Diagnosis [facility] [address] [address] 03/04/2023 Stephanie Black Pain in left foot M79.672 ; Metatarsalgia of right foot M77.41 ; Pain in left ankle and joints of left foot M25.572 ; Bursitis of intermetatarsal bursa of left foot M77.52 ; Metatarsalgia, left foot M77.42 ; Neuritis M79.2 ; Bursitis of intermetatarsal bursa of right foot M77.51 ; Lesion of plantar nerve, left lower limb G57.62 and Pain in right foot M79.671 Assessments Encounter Date Diagnosis (ICD Code) Assessment Notes Treatment Notes Treatment Clinical Notes Section Notes 03/04/2023 Pain in left foot (ICD-10 - M79.672) 03/04/2023 Metatarsalgia of right foot (ICD-10 - M77.41) 03/04/2023 Pain in left ankle and joints of left foot (ICD-10 - M25.572) 03/04/2023 Bursitis of intermetatarsal bursa of left foot (ICD-10 - M77.52) 03/04/2023 Metatarsalgia, left foot (ICD-10 - M77.42) 03/04/2023 Neuritis (ICD-10 - M79.2) 03/04/2023 Bursitis of intermetatarsal bursa of right foot (ICD-10 - M77.51) 03/04/2023 Lesion of plantar nerve, left lower limb (ICD-10 - G57.62) 03/04/2023 Pain in right foot (ICD-10 - M79.671) Plan Of Treatment Pending Test Test Name Order Date 99633, J0702- Neuroma/Injection 03/04/20 Next Appt Details Follow Up: 6 Weeks, Reason: Procedure Notes * Category Sub-Category Detail Notes Injection Neuroma/Injection 46749, J0702 I njection - Neuroma w/ Celestone Soluspan 3mg combined with 1cc 1 percent Xylocaine Plain anes utilizing aseptic technique. The patient tolerated the procedure well. Post injection instructions were dispensed, verbally discussed, and confirmed understood by the patient. I explained that a steroid and local anesthetic injections are administered to relieve pain and inflammation and thereby meant to improve function. I explained the possible complications including but not limited to signs/symptoms of steroid flare, infection, bruising, atrophy, discoloration of skin, change/deviation in toe position, and that additional injections may be necessary, Patient relates post-procedural pain assessment improved at ( 0-1) out of 10 , LEFT Progress Notes * Juany PERRY ADOB: (67 yo F)Acc No.[id number]:03/04/2023 Progress Notes Patient:?Juany Perry Provider:?Stephanie Escobar DPM :1955???Age:67 Y???Sex:Female D ate:03/04/2023 Address:[address] [place], [place] [id number] Pcp:Batool Canseco NP Subjective: * Chief Complaints: * ???Foot pain * HPI: ???Foot Pain:?Nature:?swelling , numbness.?Location:?Bottom, Forefoot,?L, with recent pain right.?Duration:?several months (4).?Onset:?gradual.?Course:?worse right , improved , at 50% left.?Aggrevated:?standing , walking , especially barefoot.?Treatments:?change in shoes, metatarsal pads , cortisone injection (1L).?Severity/Quality:?, scale 1-10 , States pain 2 /3 on a scale to max of 10.? * ROS:?General/Constitutional:?Nausea?denies, denies.?Vomiting?denies, denies.?Hunger Thirst?denies, denies.?Loss appetite?denies, denies.?Chills?denies, denies.?Fatigue?denies, denies.?Fever?denies, denies.?Night Sweats denies, denies.?Unexplained weight loss?denies, denies.?Unexplained weight gain?denies, denies.?HEENTM:?Dentures?denies, denies.?Dizziness?denies, denies.?Glasses/contacts?admits, admits.?Retinopathy?denies, denies.?Blurred/double vision?denies, denies.?TMJ?denies, denies.?Discharge/drainage?denies, denies.?Implants?denies, denies.?Sore throat?denies, denies.?Dental implants?denies, denies.?Hard of hearing ?denies, denies.?Difficulty chewing/swallowing/speaking?denies, denies.?Nose bleeds?denies, denies.?Sore mouth?denies, denies.?Respiratory:?On Oxygen?denies, denies.?Pneumonia/pleurisy?denies, denies.?Bronchitis?denies, denies.?Emphysema?denies, denies.?Coughing?denies, denies.?Cough blood?denies, denies.?Shortness of breath?denies, denies.?Wheezing?denies, denies.?Cardiovascular:?Pacemaker?denies, denies.?MVP?denies, denies.?WPW?denies, denies.?CHF?denies, denies.?Heart attack?denies, denies.?Septal defect?denies, denies.?Rapid beat?admits, admits.?Chest pain ?denies, denies.?Atrial Fib.?denies, denies.?Murmur/Palpitations?denies, denies.?Gastrointestinal:?Hemorrhoids?denies, denies.?Stomach/Abdominal pain?denies, denies.?Dark blood stool?denies, denies.?Irritable bowel ?denies, denies.?Constipation?denies, denies.?Diarrhea?denies, denies.?Hematology:?Swelling?denies, denies.?Clots?denies, denies.?Varicose Veins?denies, denies.?Bruising?denies, denies.?Bleeding problem?denies, denies.?Genitourinary:?Blood urine?denies, denies.?Frequent/Painfu/urination/bladder control?denies, denies.?Kidney stones?denies, denies.?Infection (UTI)?denies, denies.?Nephropathy?denies, denies.?sex trans dis (STD)?denies, denies.?Prostate?denies, denies.?Musculoskeletal:?Hammertoes?admits, admits.?Bunions?admits, admits.?Back Pain?admits, admits.?Muscle Cramps/ Resting?denies, denies.?Muscle cramps / walking?denies, denies.?Generalized aches and pains?admits, admits.?Weakness?denies, denies.?Integ.:?Watts?denies, denies.?Scars?denies, denies.?Corns/calluses?admits, admits.?Ingrown nails?denies, denies.?Painful nails?denies, denies.?Open Sores?denies, denies.?Rashes?denies, denies.?Neurologic:?Difficulty sleeping?admits, admits.?Brain disorder?denies, denies.?Numbness?admits, admits.?Balance trouble?admits, admits.?Confusion?denies, denies.?Fainting/blackouts?denies, denies.?Tingling?admits, admits.?Tremors?denies, denies.? * Medical History:? * Surgical History:?ovarian cy st resection tonsillectomy colonoscopy 01/03/23endoscopy 01/03/23 * Hospitalization/Major Diagno stic Procedure:?No Hospitalization History. * Family History:?Mother: mario santoro, diagnosed with [...] swimming, walking. ?Marital status: . ?Occupation: Retired:[employer]. * Medications:?TakingZyrTEC Al lergy 10 MG [...] Tablet Sublingual as directed Sublingual D3 Vitamin [place] 3 1200 MG Capsule 1 capsule Orally [...] as directed Sublingual Not-Taking/PRN D3 Vitamin Not-Taking/PRN [place] 3 1200 MG Capsule 1 capsule Orally Once a dayNot-Taking/PRN vitamin , Notes: OTCNot-Taking/PRN Align 4 MG Capsule as directed Orally , Notes: OTCNot-Taking/PRN Boswell-Gel - Gel as directed Externally , Notes: [...] diseaseyes[Allergies Verified] Objective: * Vitals:?Ht: 5ft 3in, Wt: 155 , BMI:27.45, Shoe size: 10EE. * Examination: ???Orthopedic: ?GAIT ABNORMALITY:?antalgic.?DIGITAL DEFORMITIES:?Digital contracture, PIPJ, 2-5 B/L, non-reducible with WB or to push-up test, no over, nor underlapping.?MPJ PATHOLOGY:? Pain, swelling, and inflammation to plantar MPJ(s), 2,3?LEFT, No MPJ pain with ROM, [ - ] Ecchymosis, Pain, swelling, and inflammation to plantar MPJ(s) 2,3? Right.?Neurological: ?SENSORY:?Neurological exam reveals intact sensorium, pain sensation normal, vibration sensation intact, pinprick sensation is normal in the lower extremities, Pt denies, anesthesia, burning, paresthesia, tingling, B/L.?TINEL'S COMPRESSION:? Negative tarsal tunnel, ally pedis, and medial calcaneal nerves, Left.?Neuroma Pain: ?PALPATION:?decreased 50% Pain with direct palpation of the intermetatarsal space , 2nd interspace , positive Mary's click , LEFT ,?No interspace pain noted on palpation no pain with direct palpation 2nd right.?General Examination: ?GENERAL APPEARANCE:?good attention to hygiene, no acute distress, well developed, well nourished.?FOOT EXAM:?Lower Extremity Neurological Exam performed:?Yes ?Footwear Evaluation?Footwear Evaluation performed:?Yes?Vascular: ?DP PULSES:?2/4, B/L.?PT PULSES:?2/4, B/L.?CAPILLARY FILL TIME:?3 secs. per digit, B/L.?SKIN TEMPERTURE GRADIENT OF THE LOWER EXTERMITIES:?warm to cool, proximal to distal, B/L.?HAIR GROWTH/TEXTURE/ELASTICITY/TURGOR:?normal, B/L.?PIGMENTATION:?normal, B/L.?EDEMA:?absent, B/L.? Assessment: * Assessment: 1.?Pain in left foot - M79.6 72?2.?Metatarsalgia of right foot - M77.41 (Primary)?3.?Pain in left ankle and joints of left foot - M25.572?4.?Bursitis of intermetatarsal bursa of left foot - M77.52?5.?Metatarsalgia, left foot - M77.42?6.?Neuritis - M79.2?7.?Bursitis of intermetatarsal bursa of right foot - M77.51?8.?Lesion of plantar nerve, left lower limb - G57.62?9.?Pain in right foot - M79.671? Plan: * Treatment: * Procedures:?Injection:?Neuroma/Injection?43573, J0702 Injection - Neuroma w/ Celestone Soluspan 3mg combined with 1cc 1 percent Xylocaine Plain anes utilizing aseptic technique. The patient tolerated the procedure well. Post injection instructions were dispensed, verbally discussed, and confirmed understood by the patient. I explained that a steroid and local anesthetic injections are administered to relieve pain and inflammation and thereby meant to improve function. I explained the possible complications including but not limited to signs/symptoms of steroid flare, infection, bruising, atrophy, discoloration of skin, change/deviation in toe position, and that additional injections may be necessary, Patient relates post-procedural pain assessment improved at ( 0-1) out of 10 , LEFT.? * Procedure Codes:?17711 N BLO CK INJ, PLANTAR DIGIT, Modifiers: XS J0702 INJ BETAMETHSN ACTAT&SOD PHOSPH-3MG * Preventive Medicine:? ??Counseling:?Discussion:?-13: Office or other [...] have encouraged the patient to call the office.?Metatarsalgea:?I explained to the patient the possible etiologies of their Metatarsalgea Foot pain, including foot type/shoegear/activity level/exercise routine and the risks/benefits of all the different treatment options for pain including: No treatment at all, Rest, Ice, NSAIDs(only if well tolerated after meals), New/supportive Shoegear, Strappings and Tapings, Foot/Ankle AFO Bracing, Stretching exercises, Deep Tissue Massage, Arch support/shoe inserts, Custom orthoses, Topical analgesics including Aspercream/Voltaren gel, Physical Therapy, Cortisone injection therapy, EPAT/ESWT. Advantages and disadvantages of each option were discussed and the patients questions re: shoegear, custom vs prefabricated inserts, activity level, PO vs Topical medications (and their respective potential complications/drug interactions/side effects), and consistency in home treatment regimens for optimal success were answered to their verbally confirmed satisfaction, Added Met Bar to right OT.? * Follow Up:?6 Weeks * Images: * Sign off status: Completed true * Provider:?Stephanie Escobar DPM Date:?2022 Generated for Amber beasley/Priscila/Albaro on:?08/20/2024 11:28 AM EDT History and Physical Notes * HPI (History of Present Illness) Category Sub-Category Detail Notes Category Not es Foot Pain Nature: swelling , numbness Location: Bottom, Forefoot, L, with recent pain right Duration: several months (4) Onset: gradual Course: worse right , improv ed , at 50% left Aggravated: standing , walking , especially barefoot Treatments: change in shoes, met atarsal pads , cortisone injection (1L) Severity/Quality: , scale 1-10 , State s pain 2 /3 on a scale to max of 10 Examination Category Sub-Category Detail Notes Category Not es Ingrown Nail INSPECTION: Neuroma Pain PALPATION: decreased 50% Pa in with direct palpation of the intermetatarsal space [...] ally pedis, and medial calcaneal nerves, Left Orthopedic GAIT ABNORMALITY: antalgic DIGITAL DEFORMITIES: Digital contracture , PIPJ, 2-5 B/L, non-reducible with WB or to push-up test, no over, nor underlapping MPJ PATHOLOGY: Pain, swelling, and inflammation to plantar MPJ(s), 2,3 LEFT, No MPJ pain with ROM, [ - ] Ecchymosis, Pain, swelling, and inflammation to plantar MPJ(s) 2,3 Right General Examination GENERAL APPEARANCE: good att ention to hygiene, no acute distress, well developed, well nourished FOOT EXAM: Lower Extremity Neurological Exa m performed:: Yes Footwear Evaluation Footwear Evaluation performe d:: Yes Vascular DP PULSES (B): 2/4, B/L PT PULSES (B): 2/4, B/L CAPILLARY FILL TIME: 3 secs. per digit, B/L TEMPERTURE GRADIENT (C): warm to cool, p roximal to distal, B/L TROPHIC CONDITION-TEXTURE/ELASTICITY/TURGOR/HAIR GROWTH (B): normal, B/L EDEMA (C): absent, B/L PIGMENTATION: normal, B/L
== END 2024-08-20 09:51 | disposition home or self-care (01) ==
LOC: HO.MAMMO 09:50
PROVIDERS: PCP Nurse Practitioner Family; Visit Provider Family Medicine
DX: Z12.31 Encounter for screening mammogram for malignant neoplasm of breast (principal)
CPT/HCPCS: 77063; 77067

== ENCOUNTER → 2024-08-20 10:00 | Outpatient (BNV) | payer MEDICARE, SELFPAY | PROVIDERS: PCP Nurse Practitioner Family; Visit Provider Internal Medicine | DX: Z12.31 Encounter for screening mammogram for malignant neoplasm of breast (principal) | CPT/HCPCS: 77063; 77067 ==